=== PATIENT | female | born 2000 | race Caucasian/White ===

== ENCOUNTER 2018-05-13 08:30 | Outpatient (RCR) | payer OTHER, SELFPAY ==
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
--- NOTE | 2018-05-13 14:54 | BH.SGPN ---
Service Group Progress Note - Session Psychotherapy Session #2 Date Open:: 05/13/18 Time Started:: 10:25 Time Stopped:: 11:15 Targeted Problem #:: 1 Type of Group:: Illness Management Goal of Group:: To increase understanding how positive and negative forces in life can impact balance in life. Client Response/Progress/Benefit:: Client appeared anxious throughout group listening attentively to others and sharing her thoughts at times. Mostly stayed quiet which could be attributed to today being client's first day in [facility]. Client did connect with other group members comments about having to put forth effort in order for her personal growth to happen. Client shared she often uses napping as her way of dealing with her emotions which she recognizes does not helping for it. Client shared 3 things to take with session to be utilizing self-care more, setting boundaries, and challenging her negative thoughts. Client seemed benefit from increasing awareness of effort needed in order for personal growth to occur. Eye Contact:: Fair Motor Activity:: Appropriate Appearance:: Casual Speech:: Appropriate Mood:: Anxious Affect:: Congruent Thoughts:: Linear, Logical, No evidence of hallucinations/delusions noted Staff Interventions:: Therapist facilitated group discussion about the various forces of life and helped clients connect the impact they have on balance in life. Therapist led group in an experiential activity in which group members had to work together to balance an object and move it to a designated location. Therapist utilized the activity as a tool to process the challenges connected with balancing various forces. Psychotherapy Session #3 Date Open:: 05/13/18 Time Started:: 11:22 Time Stopped:: 12:15 Targeted Problem #:: 1 Type of Group:: Functional Skills Development Goal of Group:: To identify positive and negative forces in life and identify which forces are helping stability and which forces are contributing to instability. Client Response/Progress/Benefit:: Client overall quiet contributed if elicited by therapist and listened attentively to others. Client identified her positive forces to include: Family, counselor, wanting to be a good role model, her cat, and trying to be the person she can imagined she would be. Client shared her negative forces to include: Certain family members, anxiety, fear of failure, putting herself down, and not accepting help. Client reported currently she does not feel her forces are balanced because she constantly feels like she is going up and down with having a good day and then a bad day but no consistency. Client seemed benefit from increasing awareness of her positive and negative forces. Eye Contact:: Fair Motor Activity:: Appropriate Appearance:: Casual Speech:: Appropriate Mood:: Anxious Affect:: Congruent Thoughts:: Linear, Logical, No evidence of hallucinations/delusions noted Staff Interventions:: Therapist provided group with an example of a scenario of a person and the individual?s positive and negative forces. Therapist provided each group member with a worksheet in which they were to identify five positive and five negative forces in their life. Therapist processed the activity with the group, helping others connect the impact certain forces have on their life balance.
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
--- NOTE | 2018-05-13 16:47 | BH.SGPN ---
Service Group Progress Note - Session Psychotherapy Session #1 Date Open:: 05/13/18 Time Started:: 09:05 Time Stopped:: 10:17 Targeted Problem #:: 1 Type of Group:: Process - 7 participants Goal of Group:: The goal of today's group was to check-in with client's mood, stressors, and positives, review homework and introduce topic for the day. Client Response/Progress/Benefit:: Client new to the IOP program and expressed feeling both anxious and unsure of beginning the program. She did well to remain attentive throughout and was willing to share with the group. Client shared that she had decided on beginning the program in order to learn new ways of managing her symptoms of anxiety and depression. Client disclosed struggling with her mental health since she was a child but that her anxiety and depression seems to have worsened following the of her sister almost four years ago and has become unmanageable in the last month or so. Client expressed Im used to running or hiding from my problems but I dont want to do that anymore. Client benefitted from the support of the group environment and encouragement provided by fellow participants. Client showed willingness to open up to the group and am is recommended continued IOP tx improve current insight and understanding regarding mental health as well as increased overall used of healthy coping skills. Eye Contact:: Good Motor Activity:: Appropriate Appearance:: Casual Speech:: Appropriate Mood:: Anxious, Depressed Affect:: Congruent Thoughts:: Linear, Logical, No evidence of hallucinations/delusions noted Staff Interventions:: Therapist used open-ended questions to elicit information about client's current stressors and mood state. Therapist was supportive by using active listening and reflection.
--- NOTE | 2018-05-14 11:14 | BH.SGPN ---
Service Group Progress Note - Session Psychotherapy Session #1 Date Open:: 05/14/18 Time Started:: 09:10 Time Stopped:: 10:00 Type of Group:: Process - 5 group members Goal of Group:: The goal of today's group was to check-in with client's mood, stressors, and positives, and review homework. Client Response/Progress/Benefit:: Pt was attentive however did not participate in group discussion. Shared that she felt much better and less anxious this morning Reports being more optimistic after starting IOP yesterday. Shared increased motivation today as well stating I got up after only one alarm. Shared struggles with decision-making over the past several weeks which has caused conflict with her mother. Pt reports feeling like a failure to her mother which has caused significant depressive and negative thoughts. Eager to prove she is not a failure however struggles with impulse and desires. Reported progress from yesterday regarding mood. Will continue with IOP to maintain safety, stablize depression, and prevent further decompensation. Eye Contact:: Good Motor Activity:: Appropriate Appearance:: Casual Speech:: Appropriate Mood:: Anxious Affect:: Congruent Thoughts:: Linear, Logical, No evidence of hallucinations/delusions noted Staff Interventions:: Therapist used open-ended questions to elicit information about client's current stressors and mood state. Therapist was supportive by using active listening and reflection.
--- NOTE | 2018-05-14 13:43 | BH.SGPN ---
Service Group Progress Note - Session Psychotherapy Session #2 Date Open:: 05/14/18 - 6 group members Time Started:: 10:10 Time Stopped:: 11:07 Targeted Problem #:: 1 Type of Group:: Illness Management Goal of Group:: To increase self-awareness of current reality in regards to mental wellness and desired mental wellness. Client Response/Progress/Benefit:: Client responded well to session, quiet at first, but participating after prompting. Client appeared to connect with the topic sharing I put a lot of barriers up myself. Client created a visual of her current mental health reality which depicted client standing at the base of a rope ladder hanging on an apple tree. Client shared the top of the tree is where client wants to be, happy, confident, enjoying life, but client cannot take the steps to get there yet. Client shared she is being chased by dogs of anxiety, avoidance, and depression. Client reported her desired reality climbing the rope and sitting on a branch with her supports close enough to the fruit in the tree where she can enjoy them, but still experiences challenges. Client reported I know my depression and anxiety wont go away all the way, but Ill be able to handle things better. Client shared she feels less hopeless and can envision how things will improve. Client appeared to benefit from gaining awareness of her current mental health reality. Progressed noted in client's increased awareness of mental health warning signs and symptoms, but can continue to benefit from reducing anxiety and depression. Client to continue IOP to prevent decompensation and promote mood stability. Eye Contact:: Good Motor Activity:: Appropriate Appearance:: Neat Speech:: Appropriate Mood:: Anxious Affect:: Constricted Thoughts:: Linear, Logical, No evidence of hallucinations/delusions noted Staff Interventions:: Therapist facilitated group discussion about current reality in regards to mental health. Client provided each group member a piece of paper and asked them to draw their current reality. Therapist led the processing of each group members drawing. Therapist provided each group member with a second piece of paper and asked clients to draw desired mental wellness. Therapist processed each group members drawing, helping clients connect the two realities. Psychotherapy Session #3 Date Open:: 05/14/18 - 5 group members Time Started:: 11:17 Time Stopped:: 12:14 Targeted Problem #:: 1 Type of Group:: Functional Skills Development Goal of Group:: To identify obstacles in clients path to mental wellness and identify strategies to help clients overcome these obstacles. Client Response/Progress/Benefit:: Client responded well to session, active participant providing good insight. Client identified personal barriers keeping client from achieving her desired reality avoiding problems, negative self-talk, setting herself up for failure, and not asking for help. Client stated these barriers keep client stuck and she knows what will help her, but does not use the supports to get there. Client participated in the activity and helped the group establish strategies to overcome barriers. Clients strategies included reminding herself no one is perfect and that it is okay to make mistakes, reaching out to one support person, challenging negative thoughts, and knowing limitations and strengths. Client appeared to benefit from gaining awareness of the barriers holding client back from reaching goals and identifying strategies to overcome these barriers. Progress still limited as client is new to [facility], but appears less anxious in group as shown by her engagement with peers and contribution to discussion. Eye Contact:: Good Motor Activity:: Appropriate Appearance:: Neat Speech:: Appropriate Mood:: Anxious Affect:: Full Thoughts:: Linear, Logical, No evidence of hallucinations/delusions noted Staff Interventions:: Therapist facilitated group discussion about obstacles and the hesitations of overcoming obstacles. Client led group in discussion about what obstacles they have control over and which obstacles are out of their control. Therapist helped clients connect how each obstacle is preventing them from achieving their desired reality. Therapist led an activity aimed to help clients use teamwork and problem-solving to establish strategies for overcoming obstacles. Therapist assisted clients in creating a list of various strategies to promote emotional wellness and overcome barriers. Therapist provided support by using reflective listening and providing feedback.
--- NOTE | 2018-05-14 16:49 | BH.SGPN_ITS ---
Service Group Progress Note - Session Psychotherapy Session #1 Date Open:: 05/13/18 Time Started:: 09:05 Time Stopped:: 10:17 Targeted Problem #:: 1 Type of Group:: Process - 7 participants Goal of Group:: The goal of today's group was to check-in with client's mood, stressors, and positives, review homework and introduce topic for the day. Client Response/Progress/Benefit:: Client new to the IOP program and expressed feeling both anxious and unsure of beginning the program. She did well to remain attentive throughout and was willing to share with the group. Client shared that she had decided on beginning the program in order to learn new ways of managing her symptoms of anxiety and depression. Client disclosed struggling with her mental health since she was a child but that her anxiety and depression seems to have worsened following the of her sister almost four years ago and has become ?unmanageable? in the last month or so. Client expressed ?I?m used to running or hiding from my problems but I don?t want to do that anymore?. Client benefitted from the support of the group environment and encouragement provided by fellow participants. Client showed willingness to open up to the group and am is recommended continued IOP tx improve current insight and understanding regarding mental health as well as increased overall used of healthy coping skills. Eye Contact:: Good Motor Activity:: Appropriate Appearance:: Casual Speech:: Appropriate Mood:: Anxious, Depressed Affect:: Congruent Thoughts:: Linear, Logical, No evidence of hallucinations/delusions noted Staff Interventions:: Therapist used open-ended questions to elicit information about client's current stressors and mood state. Therapist was supportive by using active listening and reflection.
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
--- NOTE | 2018-05-15 14:25 | BH.DR.ITP ---
Initial Treatment Plan - Patient Information Visit Information: ADMISSION DATE: EXPECTED LOS: 4-6 weeks Diagnoses:: Major depressive disorder F 33.2 - Problems/Symptoms Problem #1:: Depression Symptom:: Sad mood, anhedonia, biologic disruption of sleep and appetite, passive thoughts of Problem #2:: Anxiety Symptom:: Rumination, intrusive traumatic thoughts, panic
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
--- NOTE | 2018-05-18 14:16 | BH.MDN ---
Multi-Disciplinary Note - Note 30-min Individual Time Started:: 12:22 Date: 05/18/18 Purpose of session/treatment goals addressed:: Purpose of session was to assess Client current symptoms and stressors, as well as use of coping strategies. Another purpose was to assist client in beginning to identify healthy activities to incorporate in a regular routine on days she is not in the program as well as strategies for motivating herself and preventing isolation. Eye Contact:: Good Motor Activity:: Appropriate Appearance:: Casual Speech:: Appropriate Mood:: Dysthymic Affect:: Congruent Thoughts:: Linear, Logical, No evidence of hallucinations/delusions noted Staff Interventions:: Therapist used open ended questions to elicit Client's current symptoms and stressors. Therapist elicited Client's thoughts about her ability to implement skills learned in during daily life. Therapist provided support by listening attentively, commending CLient on progress, and validating emotions. Used CBT interventions to assist Client in identifying thought challenging techniques for combating urges to isolate. Discussed small goals for client to begin decreasing negative self talk and improving relationship with self. Client Response:: Client responded well to session and indicates feeling as though her overall mood is beginning to improve since beginning the program last week. Client reports she is finding the groups to be helpful with learning new skills, giving her something to do outside of the house, and helping he to relate to others experiences. She went on to share that she had almost self-sabotaged over the weekend but was able to use the support of her mother and her own thought challenging to analyze her choices and make a healthier decision. Client explained that she had been able to overcome urges to go. to a alliance party in which alcohol was going to be present and make plans to see a movie with a different group of friends instead. Client indicated that this had been hard as she had been ruminating on the fact that her mother had told her she was setting herself up for failure if she went to the alliance party. She shared being tempted to prove her wrong but instead decided it was not worth risking additional problems from being created as a result. CLient shared doing well to feel happy and challenge negative self-talk when around others but struggles significantly during times she is alone. CLient went on to explain spending much of Friday in bed as she didn't have plans and didn't see the point in doing anything else. She additionally discussed that Friday was difficult emotionally for her as it was Father's day and client struggled to decide whether or not she wanted to see her father. She shared spending a few hours with him after work but was sure to maintain boundaries of only staying as long as she felt comfortable and not being pressured to spend additional time. She did well to identify the negative impact avoidance and isolation have on her mental health and shared difficulties in challenging the justifications she gives herself when doing so. Client expressed some fear and discomfort in spending time alone as she gets lonely and is unsure she will like getting to know herself better. CLient able to work with therapist on identifying positive qualities she has to begin confronting some of client negative self-esteem. Client shared feeling more likely to do things on days that she has things scheduled and if she gets up and takes a shower. Client willing to set a goal of showering each morning and planning one thing to do on the days she is not in group. Risks/Concerns:: lient denies active SI/HI ideation, plan or intent to date - 05/18/18. no risks or concerns at this time. Client is aware of and willing to access local crisis resources should she need. Client future oriented and indicates plans to go to a local [employer] store this afternoon. Progress Toward Goals/Plan:: Progress made. Since beginning IOP program client has done well to engage in both individual and group sessions. She reports a decrease in depressive symptoms due to actively trying to apply the stuff I learn in groups. Client specifically cited use of reframing and thought stopping strategies over the weekend. Client does continue to note difficulties in coping with down time or being alone. She indicates sleeping for most of the day when she does not have plans or watching Netflix to avoid doing anything else. Client plan is to continue with current tx plan and work on increasing implementation of healthy coping activities, establishing healthy boundaries, and improving positive self-talk on a regular basis. Time Stopped:: 12:58
--- NOTE | 2018-05-18 14:17 | BH.SGPN ---
Service Group Progress Note - Session Psychotherapy Session #2 Date Open:: 05/18/18 group members Time Started:: 10:20 Time Stopped:: 11:17 Targeted Problem #:: 1 Type of Group:: Illness Management Goal of Group:: To identify the importance of change, increase understanding of difficulty of making change, identify what clients would like to make changes in and identify the barriers or obstacles that get in the way of change. Client Response/Progress/Benefit:: Client responded well to session, quiet, but participating when prompted. Client connected with quote, stating, you dont grow or change if you keep looking back. Client stated change is important to help improve quality of life, but it is not easy because of anxiety, fear, and negative thinking. Client identified changes she would like to make this week as going for more walks, putting more effort into applying for jobs, and relaxing outside instead of in her bed. Client shared these changes would make her feel better, not isolate as much, and increase activity. Client identified barriers to these goals such as telling myself I deserve to stay in bed and lack of confidence. Client appeared to benefit from gaining awareness of the importance of change and identifying changes she would like to make this week. Client progressing as evidenced by her improved insight and report of using healthy coping over the weekend. Client to continue IOP to prevent decompensation and promote emotional regulation. Eye Contact:: Good Motor Activity:: Appropriate Appearance:: Neat Speech:: Appropriate Mood:: Anxious Affect:: Constricted Thoughts:: Linear, Logical, No evidence of hallucinations/delusions noted Staff Interventions:: Therapist facilitated discussion about change and helped clients make connections of why change is important. Therapist led group in an experiential activity which involved clients identifying changes want to make and barriers that get in the way of making those changes. Therapist utilized activity as a tool to help clients make connections of difficulties in making changes and identify what helps overcome barriers to change. Psychotherapy Session #3 Date Open:: 05/18/18 - group members Time Started:: 11:23 Time Stopped:: 12:15 Targeted Problem #:: 1 Type of Group:: Functional Skills Development Goal of Group:: To identify specific barriers to an identified change clients want to make and identify ways to overcome those barriers. Client Response/Progress/Benefit:: Client responded well to session, active participant. Client connected the activity to life outside of group, sharing you have to know your barriers first before you can start making change. Client identified her goal for the week as stop telling myself I deserve to stay in bed all day. Client stated she wants to make this change because it will reduce isolation and help her be more productive. Client's barriers were negative self-talk, old habits, and low energy. Client helped the group create strategies to overcome these barriers such as getting out in the sun, taking care of personal hygiene, using delay distract decide, and setting time limits. Client appeared to benefit from identifying strategies to overcome barriers. Progress noted in client's increased insight and engagement in group, but can continue to benefit from challenging cognitive distortions. Eye Contact:: Good Motor Activity:: Appropriate Appearance:: Neat Speech:: Appropriate Mood:: Anxious Affect:: Constricted Thoughts:: Linear, Logical, No evidence of hallucinations/delusions noted Staff Interventions:: Therapist facilitated discussion about what helped the group overcome challenges that came about during the experiential activity. Therapist utilized the activity as a tool in relating those experiences to ways to overcome barriers with challenges in their life when trying to make change. Therapist group into smaller groups and had them brainstorm ways to overcome certain barriers to their identified change. Therapist provided support by using reflective listening and providing feedback.
--- NOTE | 2018-05-18 14:20 | BH.SGPN_ITS ---
Service Group Progress Note - Session Psychotherapy Session #2 Date Open:: 05/18/18 group members Time Started:: 10:20 Time Stopped:: 11:17 Targeted Problem #:: 1 Type of Group:: Illness Management Goal of Group:: To identify the importance of change, increase understanding of difficulty of making change, identify what clients would like to make changes in and identify the barriers or obstacles that get in the way of change. Client Response/Progress/Benefit:: Client responded well to session, quiet, but participating when prompted. Client connected with quote, stating, you don?t grow or change if you keep looking back. Client stated change is important to help improve quality of life, but it is not easy because of anxiety, fear, and negative thinking. Client identified changes she would like to make this week as going for more walks, putting more effort into applying for jobs, and relaxing outside instead of in her bed. Client shared these changes would make her feel better, not isolate as much, and increase activity. Client identified barriers to these goals such as ?telling myself I deserve to stay in bed? and lack of confidence. Client appeared to benefit from gaining awareness of the importance of change and identifying changes she would like to make this week. Client progressing as evidenced by her improved insight and report of using healthy coping over the weekend. Client to continue IOP to prevent decompensation and promote emotional regulation. Eye Contact:: Good Motor Activity:: Appropriate Appearance:: Neat Speech:: Appropriate Mood:: Anxious Affect:: Constricted Thoughts:: Linear, Logical, No evidence of hallucinations/delusions noted Staff Interventions:: Therapist facilitated discussion about change and helped client?s make connections of why change is important. Therapist led group in an experiential activity which involved client?s identifying changes want to make and barriers that get in the way of making those changes. Therapist utilized activity as a tool to help client?s make connections of difficulties in making changes and identify what helps overcome barriers to change. Psychotherapy Session #3 Date Open:: 05/18/18 - group members Time Started:: 11:23 Time Stopped:: 12:15 Targeted Problem #:: 1 Type of Group:: Functional Skills Development Goal of Group:: To identify specific barriers to an identified change clients want to make and identify ways to overcome those barriers. Client Response/Progress/Benefit:: Client responded well to session, active participant. Client connected the activity to life outside of group, sharing ? you have to know your barriers first before you can start making change.? Client identified her goal for the week as ?stop telling myself I deserve to stay in bed all day.? Client stated she wants to make this change because it will reduce isolation and help her be more productive. Client's barriers were negative self-talk, old habits, and low energy. Client helped the group create strategies to overcome these barriers such as getting out in the sun, taking care of personal hygiene, using delay distract decide, and setting time limits. Client appeared to benefit from identifying strategies to overcome barriers. Progress noted in client's increased insight and engagement in group, but can continue to benefit from challenging cognitive distortions. Eye Contact:: Good Motor Activity:: Appropriate Appearance:: Neat Speech:: Appropriate Mood:: Anxious Affect:: Constricted Thoughts:: Linear, Logical, No evidence of hallucinations/delusions noted Staff Interventions:: Therapist facilitated discussion about what helped the group overcome challenges that came about during the experiential activity. Therapist utilized the activity as a tool in relating those experiences to ways to overcome barriers with challenges in their life when trying to make change. Therapist group into smaller groups and had them brainstorm ways to overcome certain barriers to their identified change. Therapist provided support by using reflective listening and providing feedback.
--- NOTE | 2018-05-18 15:11 | BH.MDN_ITS ---
Multi-Disciplinary Note - Note 30-min Individual Time Started:: 12:22 Date: 05/18/18 Purpose of session/treatment goals addressed:: Purpose of session was to assess Client current symptoms and stressors, as well as use of coping strategies. Another purpose was to assist client in beginning to identify healthy activities to incorporate in a regular routine on days she is not in the program as well as strategies for motivating herself and preventing isolation. Eye Contact:: Good Motor Activity:: Appropriate Appearance:: Casual Speech:: Appropriate Mood:: Dysthymic Affect:: Congruent Thoughts:: Linear, Logical, No evidence of hallucinations/delusions noted Staff Interventions:: Therapist used open ended questions to elicit Client's current symptoms and stressors. Therapist elicited Client's thoughts about her ability to implement skills learned in during daily life. Therapist provided support by listening attentively, commending CLient on progress, and validating emotions. Used CBT interventions to assist Client in identifying thought challenging techniques for combating urges to isolate. Discussed small goals for client to begin decreasing negative self talk and improving relationship with self. Client Response:: Client responded well to session and indicates feeling as though her overall mood is beginning to improve since beginning the program last week. Client reports she is finding the groups to be helpful with learning new skills, giving her something to do outside of the house, and helping he to relate to others experiences. She went on to share that she had almost self- sabotaged over the weekend but was able to use the support of her mother and her own thought challenging to analyze her choices and make a healthier decision. Client explained that she had been able to overcome urges to go. to a libertarian in which alcohol was going to be present and make plans to see a movie with a different group of friends instead. Client indicated that this had been hard as she had been ruminating on the fact that her mother had told her she was setting herself up for failure if she went to the libertarian. She shared being tempted to prove her wrong but instead decided it was not worth risking additional problems from being created as a result. CLient shared doing well to feel happy and challenge negative self-talk when around others but struggles significantly during times she is alone. CLient went on to explain spending much of Friday in bed as she didn't have plans and didn't see the point in doing anything else. She additionally discussed that Friday was difficult emotionally for her as it was Father's day and client struggled to decide whether or not she wanted to see her father. She shared spending a few hours with him after work but was sure to maintain boundaries of only staying as long as she felt comfortable and not being pressured to spend additional time. She did well to identify the negative impact avoidance and isolation have on her mental health and shared difficulties in challenging the justifications she gives herself when doing so. Client expressed some fear and discomfort in spending time alone as she gets lonely and is unsure she will like getting to know herself better. CLient able to work with therapist on identifying positive qualities she has to begin confronting some of client negative self-esteem. Client shared feeling more likely to do things on days that she has things scheduled and if she gets up and takes a shower. Client willing to set a goal of showering each morning and planning one thing to do on the days she is not in group. Risks/Concerns:: lient denies active SI/HI ideation, plan or intent to date - . no risks or concerns at this time. Client is aware of and willing to access local crisis resources should she need. Client future oriented and indicates plans to go to a local [employer] store this afternoon. Progress Toward Goals/Plan:: Progress made. Since beginning IOP program client has done well to engage in both individual and group sessions. She reports a decrease in depressive symptoms due to actively trying to apply the stuff I learn in groups. Client specifically cited use of reframing and thought stopping strategies over the weekend. Client does continue to note difficulties in coping with down time or being alone. She indicates sleeping for most of the day when she does not have plans or watching Netflix to avoid doing anything else. Client plan is to continue with current tx plan and work on increasing implementation of healthy coping activities, establishing healthy boundaries, and improving positive self-talk on a regular basis. Time Stopped:: 12:58
--- NOTE | 2018-05-19 08:55 | BH.SGPN_ITS ---
Service Group Progress Note - Session Psychotherapy Session #2 Date Open:: 05/15/18 Time Started:: 10:12 Time Stopped:: 11:04 Targeted Problem #:: 1 Type of Group:: Illness Management - 6 participants Goal of Group:: The goal of group was to increase understanding of the benefits social support provides in mental health wellness. Another goal was to increase self-awareness of the barriers that prevent client to seeking support or utilizing the support they have. Client Response/Progress/Benefit:: Client responded well to session and was engaged throughout both the discussion and activity portions of the group. Client worked with group members to discuss the various benefits of having a strong support system and how this may positively impact one's mental health. She appeared to benefit from the group activity in which participants were challenged to recreate a structure that they cannot see by using only the verbal instruction provided by another member of the group. Client appeared to become more engaged during activity portion and shared feeling more comfortable within the group setting. Client displaying progress in her ability to relate to fellow participants and conect with treatment materials. She is recommended continued IOP to further improve Client variety of skills for managing emotions and navigating distress as well as to prevent decompensation. Eye Contact:: Good Motor Activity:: Appropriate Appearance:: Casual Speech:: Appropriate Mood:: Euthymic, Anxious Affect:: Congruent Thoughts:: Linear, Logical, No evidence of hallucinations/delusions noted Staff Interventions:: Therapist led a group discussion about importance of social supports. Therapist facilitated an activity that required the group members to utilize support from each other. Therapist utilized the activity as a tool to connect the importance of accepting social support. Therapist provided support through reflective listening and giving feedback. Psychotherapy Session #3 Date Open:: 05/15/18 Time Started:: 11:12 Time Stopped:: 12:03 Targeted Problem #:: 1 Type of Group:: Functional Skills Development - 6 participants Goal of Group:: The goal of group was to increase understanding of the different types of social support. Another goal was to identify one type of support the client?s desire from their support system and brainstorm ways to best communicate these needs as well establish one small step towards achieving that support. Client Response/Progress/Benefit:: Client again did well to remain engaged throughout. She provided increased input to the discussion and worked with fellow participants on identifying ways in which communication and differing perspectives can impact ability to communicate with supports. CLient shared struggling to communicate with her mom as she forgets to try and put herself in her mom's shoes and also struggles to explain where she is coming from in a way thet her mother can relate to. Client benefitted from reviewing the various types of support we may need from our support system as well as brainstorming with the group ways to effectively attain this support. Client progress made in her ability to apply treatment concepts to her own life as identifed by client report of wanting to improve emotional supports so that it does not feel like she is doing things so much on her own. CLient recommended continued IOP to improve effective communication strategies and use of health stress management and emotion regulation skills on a consistent basis. Eye Contact:: Good Motor Activity:: Appropriate Appearance:: Casual Speech:: Appropriate Mood:: Euthymic, Anxious Affect:: Congruent Thoughts:: Linear, Logical, No evidence of hallucinations/delusions noted Staff Interventions:: Therapist facilitated group discussion on the different types of social support and importance of each type of support. A social support worksheet, was utilized to give clients direction in identifying which type of support they desired, how it will help, and identifying the first small step towards the desired support. Therapist provided homework for each group member to try and accomplish the one small step each group member identified on the worksheet.
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
--- NOTE | 2018-05-20 15:02 | BH.SGPN_ITS ---
Service Group Progress Note - Session Psychotherapy Session #2 Date Open:: 05/20/18 - 8 group members Time Started:: 10:18 Time Stopped:: 11:15 Targeted Problem #:: 1 Type of Group:: Illness Management Goal of Group:: To increase understanding of what conflict is and increase awareness of how group members manage conflict. Client Response/Progress/Benefit:: Client responded well to session, providing good insight to discussion. Client appeared to connect with the quote, sharing ? you don?t just have conflict with others, you have it with yourself.? Client shared conflict is a disagreement of views or values. Client shared emotions, thoughts, and bias can impact one?s ability to manage conflict. Client identified using the accommodating conflict resolution type most often as client wants to constantly make other people happy. Client shared she is not currently happy with how she manages conflict, as client reported her needs do not get met and she gets ?walked all over.? Client appeared to benefit from gaining awareness of how she manages conflict and how it impacts mental health. Progress noted as client reports reduced isolation, but can continue to benefit from setting boundaries and communicating needs. Eye Contact:: Good Motor Activity:: Appropriate Appearance:: Neat Speech:: Appropriate Mood:: Euthymic Affect:: Constricted Thoughts:: Linear, Logical, No evidence of hallucinations/delusions noted Staff Interventions:: Therapist facilitated discussion about conflict and conflict resolution. Therapist led group in an activity in which group members had to identify their initial response to conflict and how their response changes based on different situations. Therapist assisted clients with connecting the impact current conflict style has on their mental health. Psychotherapy Session #3 Date Open:: 05/20/18 - 6 group members Time Started:: 11:25 Time Stopped:: 12:15 Targeted Problem #:: 1 Type of Group:: Functional Skills Development Goal of Group:: To identify what contributes positively and negatively to conflict and appropriate ways to manage conflict with others. Client Response/Progress/Benefit:: Client responded well to session, active participant. Client contributed positively to the activity despite being anxious about being more assertive and cooperative. Client responded well to gentle challenging by therapist, who encouraged client to be more vocal of her thoughts and opinions during the activity. Client stated low self-esteem, negative thoughts, and worrying about what others think can negatively impact conflict resolution. Client helped the group identify strategies to improve conflict resolution such as taking breaks, prioritizing, and dealing with one issue at a time. Client shared she would like to improve her conflict resolution style by setting more boundaries with people who take advantage of her. Client appeared to benefit from practicing in the moment coping skills and identifying ways to improve conflict resolution. Client to continue IOP to reduce isolation and improve mood stability. Eye Contact:: Good Motor Activity:: Appropriate Appearance:: Neat Speech:: Appropriate Mood:: Anxious Affect:: Congruent Thoughts:: Linear, Logical, No evidence of hallucinations/delusions noted Staff Interventions:: Therapist facilitated group activity in which group members were provided with materials and had to eliminate certain items with consensus from group. Therapist processed activity, helping clients connect throughout activity strategies each person used to manage conflict. Therapist led discussion about what contributes to conflict in a positive or negative manner. Therapist facilitated discussion about conflict resolution strategies and provided group member with a handout about effective ways to manage conflict.
--- NOTE | 2018-05-20 15:20 | BH.SGPN ---
Service Group Progress Note - Session Psychotherapy Session #1 Date Open:: 05/20/18 Time Started:: 09:05 Time Stopped:: 10:11 Targeted Problem #:: 1 Type of Group:: Process - 8 participants Goal of Group:: The goal of today's group was to check-in with clients and review homework from previous group session. Client Response/Progress/Benefit:: Client responded well to session and was willing to participate in discussion. SHe shared feeling tired today and was slightly more quiet than baseline. Client went on to share connecting with another Client who had been discussing difficulties with spending the entire day in bed isolating. She shared having set a goal for herself yesterday of not getting back into bed after she showered in the moring. Client discribed struggling with the urge to do so and thinking oh, it's okay if it's just for a little bit. Client went on to share that instead she told herself no and removed herself from the temptation by making her bedroom off limits for the remainder of the day. Client discussed the various things she accomplished as a result and was even able to spend the evening outside with friends and family. CLient benefitted from reflecting upon the mental health benefits she experienced by challenging herself not to engage in isolating behaviors. She struggled however to identify this as a success as client indicates believing she should have been doing more. Client went on to share recently reconnecting with old friends whom have been healthy for her in the past. She is making progress in identifying where she may need to start setting boundaries and cutting out toxic relationships. Client recommended continued IOP to further work on skill building, prevent decompensation, and continue to promote use of healthy coping. Eye Contact:: Good Motor Activity:: Appropriate Appearance:: Casual Speech:: Appropriate Mood:: Dysthymic Affect:: Constricted Thoughts:: Linear, Logical, No evidence of hallucinations/delusions noted Staff Interventions:: Therapist facilitated the group session by asking open ended questions that encouraged group members to discuss their weekend and current mood state. Assisted group members in the review of their homework from previous group session.
--- NOTE | 2018-05-22 15:15 | BH.SGPN ---
Service Group Progress Note - Session Psychotherapy Session #1 Date Open:: 05/22/18 Time Started:: 09:10 Time Stopped:: 10:00 Type of Group:: Process - 8 group members Goal of Group:: The goal of today's group was to check-in with client's mood, stressors, and positives, and review homework. Client Response/Progress/Benefit:: Pt spoke with prompted however was attentive. Emotion for today is tired. Shared with the group that her relationship with her mother has improved since she start this program. Reports better decision-making, decreased isolation, and increased energy. She was proud of herself for not isolating in bed when she felt sad. Pushing herself to interact with peers and family which is improving mood and confidence. Overal reports improved mood. Progress noted as reported by patient. Benefited from group support and praise. Will continue in IOP to maintain gains, stablize depression/anxiety, decrease isolative behaviors, and improve functioning. Eye Contact:: Fair Motor Activity:: Restless Appearance:: Casual Speech:: Appropriate Mood:: Anxious Affect:: Congruent Thoughts:: Linear, Logical, No evidence of hallucinations/delusions noted Staff Interventions:: Therapist used open-ended questions to elicit information about client's current stressors and mood state. Therapist was supportive by using active listening and reflection.
--- NOTE | 2018-05-25 13:00 | BH.MDN_ITS ---
Multi-Disciplinary Note - Note 30-min Individual Time Started:: 12:21 Date: 05/25/18 Purpose of session/treatment goals addressed:: The purpose of this session was to assess treatment goal progress and current functioning as well as address client's ongoing difficulties in challenging cognitive distortions and client use of avoidance. Another goal was to increase client's awareness of strategies to combat self-sabotage and promote healthy decision making strategies. Other topics included: goal setting and mindfulness. Eye Contact:: Good Motor Activity:: Appropriate Appearance:: Casual Speech:: Appropriate Mood:: Euthymic, Anxious Affect:: Congruent Thoughts:: Linear, Logical, No evidence of hallucinations/delusions noted Staff Interventions:: Therapist used open-ended questions to explore client's current stressors, symptoms management, and ongoing use of cognitive distortions. Therapist applied components of the decisional balance tool to promote client use of healthy coping and decrease isolative and avoidance behaviors. Therapist assisted client in identifying, challenging, and replacing specific negative thoughts. Therapist used strengths-perspective to help client identify small goals to begin decreasing avoidance and improve positive self- talk and independence. Provided supportive feedback and encouragement. Client Response:: Client responded well to session and was open to meeting with therapist. She discussed successfully refraining from engaging in isolative behaviors via sleeping all day. Client shared that she has reached out to more of her supports that she had not been in contact with for quite some time. Client indicated that this has been reassuring to know that there are several people who care and support her. Client went on to discuss that she has found placing sticky notes on her bedroom wall with reminders of why not to isolate has been helpful in refraining from doing so. She went on to discuss that although she has not been sleeping during the day, she has not been completing her daily responsibilities either. Client described spending much of her time playing with her little brother or hanging out with friends but has not been doing things such as cleaning her room or doing laundry. CLient and therapist discussed using distraction as an avoidance mechanism and ways in which distractions can become unhealthy. CLient shared that she often struggles to get started on a task but once started is able to remain motivated to complete it. She worked with therapsit to review strategies for motivating her to begin completing responsibilities. CLient indicated connecting with the concept of writing down the benefits and consequences of completing the task versus not completing it. SHe did well to apply this same concept to client continued avoidance of spending time on self-care in a capacity where she is alone. CLient discussed fears that she will be tempted to isolate or will not like who she when confronted with spending time by herself. Client and therapist discussed the consequences of never growing to be comfortable with being alone and the potential benefits. She worked with therapsit to identify that she is no longer in the same place mental health [facility]aney as she had been during her last major depressive state in which she completely cut herself off from others. Client discussed wanting to begin taking small steps to work on increasing comfort levels when alone and identified spending short periods of time outside may make her more willing to do so. She reviewed mindfulness strategies with therapist and identified this as a potential means for practicing self-care on her own. Risks/Concerns:: No risks/concerns at this time. Client denies any active SI/HI , plan, or intent as of 05/25/18. She indicates plans to attend a collenge enrollment meeting with her mother getachew indicating future orientation. CLient aware of the crisis resources available should she feel unable to maintain safety at this time. Progress Toward Goals/Plan:: Client displaying progress in her ability to identify potential strategies for reducing depressive symptoms and setting small daily goals to begin implementing these skills. Client has been successful in consistently refraining from using sleep as her primary coping mechanism and has identified a reduction in depressive sx as a result. Client additionally reports finding herself thinking about tx material in her daily life and is beginning to notice more easily identifying and challenging negative thinking patterns. Client expresses a desire to further discuss cognitive distortions and strategies for challenging unhealthy thoughts. Client continues to struggle with negative thinking and self-deprication. She expresses rationally being able to recognize that her self criticism is unfair or overly harsh; however continues to experience difficulties in challenging them and often uses distraction as a means of avoiding working on her relationship with herself.Current plan is for client to continue IOP and maintain current goals of decreasing negative self talk and improving use healthy coping skills for precessing her emotions. Time Stopped:: 12:54
--- NOTE | 2018-05-25 14:50 | BH.SGPN_ITS ---
Service Group Progress Note - Session Psychotherapy Session #2 Date Open:: 05/25/18 - 9 group members Time Started:: 10:25 Time Stopped:: 11:15 Targeted Problem #:: 1 Type of Group:: Illness Management Goal of Group:: To increase understanding of communication and the various types of communication. Another goal was to increase understanding of impact communication styles can have. Client Response/Progress/Benefit:: Client responded well to session, quiet, but participating when prompted. Client reported communication is important in mental health recovery, so that a person can share what they need with supports. Client identified communication ?roadblocks? such aggressive people, negative thoughts, and jumping to conclusions. Client helped the group identify the different communication types along with the payoffs and costs of each. Client reported she uses passive communication most of the time, but most of her family members are aggressive. Client shared negative thinking keeps client from being assertive sharing ?I think I?ll be a burden and then I feel guilty and don?t ask.? Client stated her current communication style is not helping client get her needs met. Client appeared to benefit from gaining awareness of how communication impacts mental health. Progress noted as evidenced by client? s report of reduced isolation, but can continue to benefit from challenging cognitive distortions. Eye Contact:: Good Motor Activity:: Appropriate Appearance:: Neat Speech:: Appropriate Mood:: Euthymic Affect:: Full Thoughts:: Linear, Logical, No evidence of hallucinations/delusions noted Staff Interventions:: Therapist facilitated the group discussion about communication and explained the different types of communication. Therapist assisted group members in connecting the communication styles to the way they communicate and impact the communication style has on their relationships. Therapist provided support by using active listening and providing feedback. Psychotherapy Session #3 Date Open:: 05/25/18 - 7 group members Time Started:: :25 Time Stopped:: 12:15 Targeted Problem #:: 1 Type of Group:: Functional Skills Development Goal of Group:: To identify important components of communication and practice specific, clear communication. Client Response/Progress/Benefit:: Client responded well to session, active participant. Client overcame negative thinking and anxiety by volunteering to be one of the artists in the activity. Client shared the activity was stressful , but it helped client realize ?I can get through stress.? Client used assertive communication strategies such as asking questions for clarity. Client expressed she wants to be more assertive with the aggressive people in her life. Client helped the group identify strategies to improve communication such as being direct with her needs, challenging negative thoughts, and being descriptive. Client appeared to benefit from gaining awareness of the pros of using more assertive communication and strategies to improve communication. Client to continue IOP to further reduce depressive symptoms and challenging negative thinking patterns that cause ruminations. Eye Contact:: Good Motor Activity:: Appropriate Appearance:: Neat Speech:: Appropriate Mood:: Anxious Affect:: Congruent Thoughts:: Linear, Logical, No evidence of hallucinations/delusions noted Staff Interventions:: Therapist led the discussion about important components of effective communication. Therapist had volunteers from group participate in a reverse Pictionary game. The game required all group members to provide clear , specific, and assertive communication to help the volunteer draw the correct image. Therapist used the activity as to connect the importance of effective communication in mental health treatment. Therapist processed the activity with the group and helped the group identify strategies to improve communication skills.
--- NOTE | 2018-05-25 15:49 | BH.SGPN_ITS ---
Service Group Progress Note - Session Psychotherapy Session #2 Date Open:: 05/22/18 Time Started:: 10:05 Time Stopped:: 11:05 Targeted Problem #:: 1 Type of Group:: Illness Management Goal of Group:: To increase understanding of fixed vs growth mindset and the importance of looking at problems in different ways. Client Response/Progress/Benefit:: Client alert and oriented tended to be quiet , only contributing her thoughts and ideas a couple times. Client reported that sometimes when she is faced with tough situations she thinks it will never get better which keeps her stuck. Client worked cooperatively with group members during challenge activity. Connected importance of having a growth mindset because a fixed mindset can result in her not doing anything to help her situation. Client seemed to benefit from learning about the impact her mindset can have on her progress. Eye Contact:: Fair Motor Activity:: Appropriate Appearance:: Casual Speech:: Appropriate Mood:: Dysthymic Affect:: Constricted Thoughts:: Linear, Logical, No evidence of hallucinations/delusions noted Staff Interventions:: Therapist facilitated discussion about fixed vs growth mindset. Therapist led group in an activity that would initially seem impossible to complete, but once group members looked at the problem in a different way they would be able to see alternative solutions. Therapist utilized the activity as a tool to discuss overcoming those situations that seem impossible to get through. Psychotherapy Session #3 Date Open:: 05/22/18 Time Started:: 11:15 Time Stopped:: 12:10 Targeted Problem #:: 1 Type of Group:: Functional Skills Development Goal of Group:: To identify personal barriers that get in the way of accomplishing tasks and identify internal and external resources to help overcome difficult situations. Client Response/Progress/Benefit:: Client attentive to others and contributed to discussion if elicited by therapist. Client identified her personal obstacles to include: lacking patience, mad when not better, thinking she is better when she's not, toxic relationships and challenges with setting boundaries. Client seemed to benefit from group brainstorming internal and external resources that can help one overcome the various obstacles. Eye Contact:: Fair Motor Activity:: Appropriate Appearance:: Casual Speech:: Appropriate Mood:: Anxious, Dysthymic Affect:: Constricted Thoughts:: Linear, Logical, No evidence of hallucinations/delusions noted Staff Interventions:: Therapist facilitated discussion about internal and external resources and helped clients connect various internal resources they use. Therapist provided group members with a handout that gave information about various external resources the clients could utilize to get support. Therapist gave clients a worksheet in which they were asked to identify several barriers that get in their way to overcoming difficult situations. They also were asked to identify several internal and external resources they could use when needed.
--- NOTE | 2018-05-25 16:32 | BH.SGPN ---
Service Group Progress Note - Session Psychotherapy Session #1 Date Open:: 05/25/18 Time Started:: 09:07 Time Stopped:: 10:18 Targeted Problem #:: 1 Type of Group:: Process - 8 participants Goal of Group:: The goal of today's group was to check-in with client's mood, stressors, and positives, review homework and introduce topic for the day. Client Response/Progress/Benefit:: Client responded well to session and was open to processing with the group. She indicated feeling tired but positive. CLient indicated that often her mood is dictated by how she feels upon waking up in the morning however successfully challenged negative thoughts this morning and is finding that she no longer feels as negative as she had earlier in the morning. CLient discussed having a good weekend and was able to refrain from isolating during times she was not with others. Client shared going fishing with a friend on Friday which had been a positive experience as client found herself able to remain present for longer than usual. Client benefitted from reflecting upon the impact her use of healthy skills has begun to have on improving overall mood and decreasing symptoms of depression. CLient expressed feeling more motivated than previously and indicates plans to go to a meeting [facility] about enrolling in part-time community college classes in the fall. Client displaying progress in her ability to begin challenging distorted thinking patterns and continues to indicate motivation to improve ability to manage mental health symptoms. Client recommended continued IOP tx to maintain stability and continue to promote use of healthy coping skills identified as well as challenge use of self depricating talk. Eye Contact:: Good Motor Activity:: Appropriate Appearance:: Casual Speech:: Appropriate Mood:: Euthymic, Anxious Affect:: Congruent Thoughts:: Linear, Logical, No evidence of hallucinations/delusions noted Staff Interventions:: Therapist used open-ended questions to elicit information about client's current stressors and mood state. Therapist was supportive by using active listening and reflection. Therapist utilized a quote as a tool in introducing the topic of the day.
--- NOTE | 2018-05-26 17:25 | BH.MTP_ITS ---
[facility] - Patient Information Program Physician:: Adrienne Solares Primary Therapist:: JEFFRY Galvez - Psychiatric Diagnoses Psychiatric Diagnoses:: Major depressive disorder recurrent severe F 33.2. Anxiety unspecified. PTSD Diagnosis Code(s):: F33.2 - Estimated LOS Estimated LOS (in weeks):: 6 Problem/Goal #1 - Problem/Goal #1 Stated Goal:: Client will decrease depressive symptoms, isolation, negative thoughts, and agitation due to Major Depressive Disorder through Intensive Outpatient Program. Description of Barriers: Client has an extensive trauma history and reports intrusive traumatic thoughts and memories which may impact client's ability to challenge negative thinking patterns and use of self-deprecation. Client has a history of use of unhealthy coping mechanisms via substance use and unrealistic expectations of self and management of mental health symptoms which may cause internal conflict and create difficulties in maintaining progress. Client reports a strong support system however indicates difficulties with communicating mental health needs an accepting help from her supports. Functional Impact: Client endorses current symptoms have impacted her ability to function at baseline. She states that she has seen a significant impact upon socialization and increase tension in her relationships with supports. Client indicates current symptoms include increased isolation and disengagement, anhedonia, low motivation and energy, increased irritability with supports, use of substances as an avoidance mechanism, and ruminating thoughts leading to increased anxiety and depressive symptoms. Goal Relevant Strengths/Supports: Client reports having a strong support system , she has had ongoing mental health treatment since the age of 6 and is aware of terms and concepts commonly discussed, client has been engaging personality, she is highly motivated to make positive strides towards improving management of mental health symptoms, and is open and willing to try new interventions and treatment techniques. - Objectives Objective #1 Stated Objective: Client will identify current patterns of behavior negatively contributing to depressive symptoms and learn and implement 2-3 internal 2-3 external coping strategies for managing depression. Interventions: Therapist will provide psychoeducation on depression maintenance cycle and aid client in identifying current behaviors contributing to symptoms of depression and low self-worth. Therapist will help client develop insight into triggers for depression and help client to identify and implement both internal and external solutions for managing triggers in preventing exacerbation of depressive symptoms. Discharge Criteria: Client will have achieved this objective when she can effectively identify behavior patterns reinforcing depression maintenance and can utilize at least 2 internal and 2 external coping mechanisms to manage and decrease depressive symptoms. Target Date: 06/24/18 Review Date: 06/12/18 Objective #2 Stated Objective: Identify and replace 3-4 negative self-talk messages that reinforce depressive symptoms. Interventions: Therapist will help client identify distorted, negative beliefs about self and world. Therapist with discuss distorted thinking patterns and unrealistic expectations and utilize CBT and DBT methods to aide client in challenging and replacing those messages with positive, affirmative messages. Discharge Criteria: Client will have achieved this goal when can identify at least 3 negative self-talk messages and challenge and/or replace those messages with positive, affirmative messages. Target Date: 06/24/18 Review Date: 06/12/18 Problem/Goal #2 - Problem/Goal #2 Stated Goal:: Stabilize anxiety level while increasing ability to function and decreasing ruminative thoughts on a daily basis through Intensive Outpatient Program. Description of Barriers: Client has an extensive trauma history and reports intrusive traumatic thoughts and memories which may impact client's ability to challenge negative thinking patterns and use of self-deprecation. Client has a history of use of unhealthy coping mechanisms via substance use and unrealistic expectations of self and management of mental health symptoms which may cause internal conflict and create difficulties in maintaining progress. Client reports a strong support system however indicates difficulties with communicating mental health needs an accepting help from her supports. Functional Impact: Client endorses current symptoms have impacted her ability to function at baseline. She states that she has seen a significant impact upon socialization and increase tension in her relationships with supports. Client indicates current symptoms include increased isolation and disengagement, anhedonia, low motivation and energy, increased irritability with supports, use of substances as an avoidance mechanism, and ruminating thoughts leading to increased anxiety and depressive symptoms. Goal Relevant Strengths/Supports: Client reports having a strong support system , she has had ongoing mental health treatment since the age of 6 and is aware of terms and concepts commonly discussed, client has been engaging personality, she is highly motivated to make positive strides towards improving management of mental health symptoms, and is open and willing to try new interventions and treatment techniques. - Objectives Objective #1 Stated Objective: Client will identify 2-3 anxiety triggers and 2 coping skills as well as problem solving strategies to better cope and address worries. Interventions: Therapist will encourage client to use self-awareness strategies and assist client in identifying triggers for anxiety and PTSD symptoms. Work with CLient on developing coping strategies to manage ruminating thoughts and problem-solving strategies involving defining a problem, brainstorming solutions , and selecting and implementing various solutions to more realistically address worries. Discharge Criteria: Client will have achieved this goal when can verbalize at least two triggers for anxiety symptoms and implement a variety of coping and calming skills, as well as problem solving strategies to realistically address worries. Target Date: 06/24/18 Review Date: 06/12/18
--- NOTE | 2018-05-27 13:26 | BH.SGPN_ITS ---
Service Group Progress Note - Session Psychotherapy Session #1 Date Open:: 05/27/18 Time Started:: 09:10 Time Stopped:: 10:10 Type of Group:: Process - 7 group members Goal of Group:: Therapist used open-ended questions to elicit information about client's current stressors and mood state. Therapist was supportive by using active listening and reflection. Client Response/Progress/Benefit:: Spoke when prompted. Appeared attentive. Emotion for today is tired and anxious Shared with the group that she continue to work on decreasing isolation and improving relationship with family. Stated that she has a job interview for a real job this afternoon. Reports being nervous however excited. Stated that she is managing well and remarked if this were a month ago I would be a wreck. Improved self-esteeem and confidence. Tearful at times when discussing stressors and emotions related to her relationship with her father. Struggling with accepting his alcohol abuse and lack of follow through with responsibilities. Group provided support, praised her for continuing to improve herself, and offered some suggestions ( SONYA) for guidance on living with alcoholic family member. Progress noted as pt is decreasing isolation, improving decision-making, and reports improved mood. Continues to report some isolative behaviors and difficulty managing depression/anxiety however is optimistic and not hopeless. Will continue in IOP to maintain gains, prevent decompensation, and stabilize mood. Eye Contact:: Fair Motor Activity:: Restless Appearance:: Casual Speech:: Appropriate Mood:: Anxious Affect:: Congruent Thoughts:: Linear, Logical, No evidence of hallucinations/delusions noted Staff Interventions:: Therapist used open-ended questions to elicit information about client's current stressors and mood state. Therapist was supportive by using active listening and reflection.
--- NOTE | 2018-05-27 15:20 | BH.SGPN ---
Service Group Progress Note - Session Psychotherapy Session #2 Date Open:: 05/27/18 - 7 group members Time Started:: 10:25 Time Stopped:: 11:15 Targeted Problem #:: 1 Type of Group:: Illness Management Goal of Group:: To increase understanding of components of a problem, learn strategies to solve a problem and rehearse problem solving skills. Client Response/Progress/Benefit:: Client responded well to session, vocal in activity. Client appeared to connect with the topic sharing, I often struggle with solving problems. Client reported there are different types of problems such as internal, emotional, or practical. Client helped the group identify and process the ABCDEs of problem solving, connecting most with breaking down the size of the problem and using supports. Client participated in the activity, progress noted as client was assertive with presenting her ideas with peers. The group failed several times before completing and because of this client shared its okay not to fix all the problems right away, some take more time. Client appeared to benefit from learning about the ABCDEs of problems solving and using in the moment coping skills. Progress noted as client reports reduced depressive symptoms, but continues to struggle with negative thinking. Eye Contact:: Good Motor Activity:: Appropriate Appearance:: Neat Speech:: Appropriate Mood:: Anxious Affect:: Congruent Thoughts:: Linear, Logical, No evidence of hallucinations/delusions noted Staff Interventions:: Therapist facilitated group discussion about problems and the underlying components of problems. Therapist educated group about various strategies to solving a problem and provided an example of each. Therapist led group in an experiential activity that required group members to use problem solving skills to work together, rehearsing problem-solving skills. Psychotherapy Session #3 Date Open:: 05/27/18 - 6 group members Time Started:: 11:25 Time Stopped:: 12:20 Targeted Problem #:: 1 Type of Group:: Functional Skills Development Goal of Group:: To identify steps to solving a personal problem and increase awareness to those barriers that impedes the problem solving process. Client Response/Progress/Benefit:: Client responded well to session, active in discussion. Client identified Im too hard on myself as a problem she would like to overcome. Clients goal is to be more patient with herself in the treatment process. Client identified problem-solving strategies including: reminding herself daily of the accomplishments she has made, setting small daily goals to achieve, challenging self-doubt, and not setting herself up for failure. Client shared her biggest barrier is negative thinking which client plans to challenge. Client appeared to benefit from identifying steps to overcome her current problem of being too hard on herself. Client to continue IOP to promote gains and to increase mood stability. Eye Contact:: Good Motor Activity:: Appropriate Appearance:: Neat Speech:: Appropriate Mood:: Anxious Affect:: Congruent Thoughts:: Linear, Logical, No evidence of hallucinations/delusions noted Staff Interventions:: Therapist provided group members with a worksheet in which the group members were instructed to identify a problem and steps need to take to solve that problem. Then therapist instructed group members to identify those barriers that get in the way of solving the problem. Therapist led the processing of the activity. Therapist provided support by using active listening and providing feedback.
--- NOTE | 2018-05-27 15:23 | BH.SGPN_ITS ---
Service Group Progress Note - Session Psychotherapy Session #2 Date Open:: 05/27/18 - 7 group members Time Started:: 10:25 Time Stopped:: 11:15 Targeted Problem #:: 1 Type of Group:: Illness Management Goal of Group:: To increase understanding of components of a problem, learn strategies to solve a problem and rehearse problem solving skills. Client Response/Progress/Benefit:: Client responded well to session, vocal in activity. Client appeared to connect with the topic sharing, ?I often struggle with solving problems.? Client reported there are different types of problems such as internal, emotional, or practical. Client helped the group identify and process the ABCDEs of problem solving, connecting most with breaking down the size of the problem and using supports. Client participated in the activity, progress noted as client was assertive with presenting her ideas with peers. The group failed several times before completing and because of this client shared ?it?s okay not to fix all the problems right away, some take more time.? Client appeared to benefit from learning about the ABCDEs of problems solving and using in the moment coping skills. Progress noted as client reports reduced depressive symptoms, but continues to struggle with negative thinking. Eye Contact:: Good Motor Activity:: Appropriate Appearance:: Neat Speech:: Appropriate Mood:: Anxious Affect:: Congruent Thoughts:: Linear, Logical, No evidence of hallucinations/delusions noted Staff Interventions:: Therapist facilitated group discussion about problems and the underlying components of problems. Therapist educated group about various strategies to solving a problem and provided an example of each. Therapist led group in an experiential activity that required group members to use problem solving skills to work together, rehearsing problem-solving skills. Psychotherapy Session #3 Date Open:: 05/27/18 - 6 group members Time Started:: 11:25 Time Stopped:: 12:20 Targeted Problem #:: 1 Type of Group:: Functional Skills Development Goal of Group:: To identify steps to solving a personal problem and increase awareness to those barriers that impedes the problem solving process. Client Response/Progress/Benefit:: Client responded well to session, active in discussion. Client identified ?I?m too hard on myself? as a problem she would like to overcome. Client?s goal is to be more patient with herself in the treatment process. Client identified problem-solving strategies including: reminding herself daily of the accomplishments she has made, setting small daily goals to achieve, challenging self-doubt, and not setting herself up for failure. Client shared her biggest barrier is negative thinking which client plans to challenge. Client appeared to benefit from identifying steps to overcome her current problem of being too hard on herself. Client to continue IOP to promote gains and to increase mood stability. Eye Contact:: Good Motor Activity:: Appropriate Appearance:: Neat Speech:: Appropriate Mood:: Anxious Affect:: Congruent Thoughts:: Linear, Logical, No evidence of hallucinations/delusions noted Staff Interventions:: Therapist provided group members with a worksheet in which the group members were instructed to identify a problem and steps need to take to solve that problem. Then therapist instructed group members to identify those barriers that get in the way of solving the problem. Therapist led the processing of the activity. Therapist provided support by using active listening and providing feedback.
--- NOTE | 2018-05-29 10:49 | BH.SGPN ---
Service Group Progress Note - Session Psychotherapy Session #1 Date Open:: 05/29/18 Time Started:: 09:08 Time Stopped:: 10:18 Targeted Problem #:: 1 Type of Group:: Process - 7 participants Goal of Group:: The goal of today's group was to check-in with client's mood, stressors, and positives, review homework and introduce topic for the day. Client Response/Progress/Benefit:: Client receptive to session and remained engaged throughout. She discussed staying up late talking to her mother which she shared had been nice as the relationship had been tense recently. CLient discussed that her mother is beginning to recognize that she is taking her mental health seriously and working to apply skills learned in tx. Client went on to share that she had been offered the job she had been hoping for and was enxcited but nervous to be starting. CLient indicated some ongoing difficulties with falling into distorted thinking patterns or feeling as though she should be doing something or should have done something differently. Client is displaying some progress in her ability to identify distorted thinking patterns and benefitted from identifying the areas in which she is making progress. She is recommended continued IOP to further progress on individual tx goals and maintain stability as client continues to learn and apply symptom management skills. Eye Contact:: Fair Motor Activity:: Appropriate Appearance:: Casual Speech:: Appropriate Mood:: Euthymic Affect:: Congruent Thoughts:: Linear, Logical, No evidence of hallucinations/delusions noted Staff Interventions:: Therapist used open-ended questions to elicit information about client's current stressors and mood state. Therapist was supportive by using active listening and reflection.
--- NOTE | 2018-05-29 13:20 | BH.SGPN ---
Service Group Progress Note - Session Psychotherapy Session #2 Date Open:: 05/29/18 Time Started:: 10:30 Time Stopped:: 11:20 Targeted Problem #:: 1 Type of Group:: Illness Management Goal of Group:: To increase understanding of cognitive distortions, identify examples of when have had unhelpful thinking, and increase awareness of the impact cognitive distortions have on mental health. Client Response/Progress/Benefit:: Client alert and oriented, contributed thoughts and ideas to discussion and listened attentively to others. Client connected with cognitive distortions, reported she recognizes at some point she has fallen into using each distortion. Client gave example that in the past she had a boyfriend that cheated on her so now she overgeneralizes that every boyfriend she has will cheat on her. Able to recogize how this thought hurts her relationships and can contribute to the relationship not working out. Client seemed to benefit from increasing awareness about cognitive distortions and how her thoughts can impact relationships and progress. Eye Contact:: Good Motor Activity:: Appropriate Appearance:: Casual Speech:: Appropriate Mood:: Anxious, Dysthymic Affect:: Congruent Thoughts:: Linear, Logical, No evidence of hallucinations/delusions noted Staff Interventions:: Therapist provided group members with a handout that listed ten cognitive distortions with examples. Therapist facilitated group discussion about cognitive distortions. Therapist led group members in an activity to help them understand the impact cognitive distortions can have on emotions and behavior. Therapist provided support by using active listening and providing feedback. Psychotherapy Session #3 Date Open:: 05/29/18 Time Started:: 11:30 Time Stopped:: 12:20 Targeted Problem #:: 1 Type of Group:: Functional Skills Development Goal of Group:: To identify ways of defeating cognitive distortions and rehearse defeating the identified cognitive distortion. Client Response/Progress/Benefit:: Client contributed to discussion and listened attentively to peers. Client identified a distorted thought she has is If I rest on the couch then I'm not doing enough. Client reported the thought results in her feeling guility and depressed. Client shared she recognizes she is overgeneralizing becuase she used to sleep and rest all the time so now believes she can't sit down to relax at all. Client able to reframe thought It is okay to relax for a little bit because she is now doing more throughout her day. Client seemed to benefit from rehearsing recognizing and challenging distorted thoughts. Eye Contact:: Good Motor Activity:: Appropriate Appearance:: Casual Speech:: Appropriate Mood:: Anxious, Dysthymic Affect:: Congruent Thoughts:: Linear, Logical, No evidence of hallucinations/delusions noted Staff Interventions:: Therapist utilized an activity as a tool in helping clients connect the amount of effort one will need to put forth to defeat cognitive distortions. Therapist provided group members with a handout to use as an aid when trying to defeat their unhelpful thinking. Therapist processed the worksheet with group members, helping them reframe the cognitive distortions.
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
[2018-07-17 11:25] VITALS: BP 104/60; PULSE 48; RESP 14
== END 2018-05-30 23:59 ==
LOC: BHIOP 08:30
PROVIDERS: Visit Provider Psychiatry & Neurology Psychiatry
DX: F33.2 Major depressive disorder, recurrent severe without psychotic features (principal); F41.9 Anxiety disorder, unspecified; F43.10 Post-traumatic stress disorder, unspecified; F12.20 Cannabis dependence, uncomplicated; F17.210 Nicotine dependence, cigarettes, uncomplicated; Z79.899 Other long term (current) drug therapy
CPT/HCPCS: H0035; 90832; 90834; 90853

== ENCOUNTER 2018-06-01 09:00 | Outpatient (RCR) | payer OTHER, SELFPAY ==
--- NOTE | 2018-06-01 11:33 | BH.SGPN_ITS ---
Service Group Progress Note - Session Psychotherapy Session #1 Date Open:: 06/01/18 - 5 group members Time Started:: 09:05 Time Stopped:: 10:05 Targeted Problem #:: 1 Type of Group:: Process Goal of Group:: The goal of today's group was to check-in with client's mood, stressors, and positives, and review homework. Client Response/Progress/Benefit:: Client responded well to session, appearing receptive to feedback from peers. Client stated this weekend was full of crazy emotions as client experienced panic, feeling proud, anxiety, and grief in waves over the past two days. Client stated she went to a concert with her boss and coworkers which client thought would be fun, but ended up being overwhelming , exacerbated anxiety, and triggered client to drink. Client shared overall, she felt like she managed the situation well, as client did not drink and she texted her mother to come pick her up. However, client stated at one point there was a miscommunication and client's mother thought client was drinking at a bar. Client stated she and her mother were able to clarify and client reported her mother said she was proud of client. Client shared the weekend was also challenging because she was missing her sister who . Client stated her grief comes in waves and often client and her mother experience them at the same time. Client reported she continues to have a hard time talking about her grief with her mother. Client was receptive to feedback from peers on ways to increase communication on this topic with her mother and help client get her needs met. Client shared on a positive note, she used a new coping skill , jogging, to manage a panic attack which made client proud. Client appeared to benefit from processing her emotions and reflecting on progress. Progress noted as shown by client's reduced isolation and improved mood, but can continue to benefit from challenging negative thoughts and increasing self-confidence. Eye Contact:: Good Motor Activity:: Restless Appearance:: Neat Speech:: Appropriate Mood:: Euthymic, Anxious Affect:: Full Thoughts:: Linear, Logical, No evidence of hallucinations/delusions noted Staff Interventions:: Therapist used open-ended questions to elicit information about client's current stressors and mood state. Therapist was supportive by using active listening and reflection.
--- NOTE | 2018-06-01 14:18 | BH.SGPN ---
Service Group Progress Note - Session Psychotherapy Session #2 Date Open:: 06/01/18 Time Started:: 10:13 Time Stopped:: 11:04 Targeted Problem #:: 1 Type of Group:: Illness Management - 4 participants Goal of Group:: To increase understanding of fear and explore the negative impact fear of failure can have on mental health and decision making. Client Response/Progress/Benefit:: Client responded well to session, engaged throughout. She worked with the group to define failure and discuss how one's definition of failure may change based on where they are emotionally. Client expressed connecting with the group topic of fear of failure. Client indicates struggling with siginificant rumination about what might happen if she makes the wrong choice and ends letting herself or others down. She benefitted from participating in the [employer] activity in which clients were faced with making several decisions as an individual that could impact the group progress as a whole. CLient displayed progress in her ability to identify using her supports in the activity as a skill that may be transferable to daily life. CLient recommended continued IOP to maintain stability and continue client development of healthy skills. Eye Contact:: Good Motor Activity:: Appropriate Appearance:: Casual Speech:: Appropriate, Soft Mood:: Euthymic, Anxious Affect:: Constricted Thoughts:: Linear, Logical, No evidence of hallucinations/delusions noted Staff Interventions:: Therapist facilitated discussion about fear and impact fear of failure can have. Therapist led group in an experiential activity in which clients would fail numerous times throughout, but were given the opportunity to try again. Therapist led the processing of the activity and assisted clients with connecting how fear of failure impacted their decision making during the activity. Psychotherapy Session #3 Date Open:: 06/01/18 Time Started:: 11:13 Time Stopped:: 12:15 Targeted Problem #:: 1 Type of Group:: Functional Skills Development - 5 participants Goal of Group:: To identify the impact fear of failure has had on the group members lives and identify strategies to overcome fear of failure. Client Response/Progress/Benefit:: Client responded well to session, engaged in discussion throughout. She was willing to reflect with the group ways in which fear of failure has previously and may currently be impacting daily life. CLient indicated that fear of failure has caused her to isolate in the past and avoid making decisions. She shared struggling to identify potential strategies for overcoming this fear and benefitted from brainstorming this with the group. CLient expressed that finding healthy supports and reminding herself to remain patient and that failure is normal may be helpful in improving anxiety management. Recommended continued IOP to further client insight regarding mental health warning signs and triggers as well as promote use of healthy coping. Eye Contact:: Good Motor Activity:: Appropriate Appearance:: Casual Speech:: Appropriate, Soft Mood:: Euthymic Affect:: Constricted, Congruent Thoughts:: Linear, Logical, No evidence of hallucinations/delusions noted Staff Interventions:: Therapist provided each group member with a worksheet to complete that asked questions about their experiences with fear of failure. Therapist led the processing of the worksheet, helping clients connect how fear of failure has impacted them. Therapist provided support by using active listening and providing feedback.
--- NOTE | 2018-06-01 14:40 | BH.SGPN_ITS ---
Service Group Progress Note - Session Psychotherapy Session #2 Date Open:: 06/01/18 Time Started:: 10:13 Time Stopped:: 11:04 Targeted Problem #:: 1 Type of Group:: Illness Management - 4 participants Goal of Group:: To increase understanding of fear and explore the negative impact fear of failure can have on mental health and decision making. Client Response/Progress/Benefit:: Client responded well to session, engaged throughout. She worked with the group to define failure and discuss how one's definition of failure may change based on where they are emotionally. Client expressed connecting with the group topic of fear of failure. Client indicates struggling with siginificant rumination about what might happen if she makes the wrong choice and ends letting herself or others down. She benefitted from participating in the [employer] activity in which clients were faced with making several decisions as an individual that could impact the group progress as a whole. CLient displayed progress in her ability to identify using her supports in the activity as a skill that may be transferable to daily life. CLient recommended continued IOP to maintain stability and continue client development of healthy skills. Eye Contact:: Good Motor Activity:: Appropriate Appearance:: Casual Speech:: Appropriate, Soft Mood:: Euthymic, Anxious Affect:: Constricted Thoughts:: Linear, Logical, No evidence of hallucinations/delusions noted Staff Interventions:: Therapist facilitated discussion about fear and impact fear of failure can have. Therapist led group in an experiential activity in which client?s would fail numerous times throughout, but were given the opportunity to try again. Therapist led the processing of the activity and assisted clients with connecting how fear of failure impacted their decision making during the activity. Psychotherapy Session #3 Date Open:: 06/01/18 Time Started:: 11:13 Time Stopped:: 12:15 Targeted Problem #:: 1 Type of Group:: Functional Skills Development - 5 participants Goal of Group:: To identify the impact fear of failure has had on the group members lives and identify strategies to overcome fear of failure. Client Response/Progress/Benefit:: Client responded well to session, engaged in discussion throughout. She was willing to reflect with the group ways in which fear of failure has previously and may currently be impacting daily life. CLient indicated that fear of failure has caused her to isolate in the past and avoid making decisions. She shared struggling to identify potential strategies for overcoming this fear and benefitted from brainstorming this with the group. CLient expressed that finding healthy supports and reminding herself to remain patient and that failure is normal may be helpful in improving anxiety management. Recommended continued IOP to further client insight regarding mental health warning signs and triggers as well as promote use of healthy coping. Eye Contact:: Good Motor Activity:: Appropriate Appearance:: Casual Speech:: Appropriate, Soft Mood:: Euthymic Affect:: Constricted, Congruent Thoughts:: Linear, Logical, No evidence of hallucinations/delusions noted Staff Interventions:: Therapist provided each group member with a worksheet to complete that asked questions about their experiences with fear of failure. Therapist led the processing of the worksheet, helping client?s connect how fear of failure has impacted them. Therapist provided support by using active listening and providing feedback.
--- NOTE | 2018-06-02 11:09 | BH.MDN ---
Multi-Disciplinary Note - Note 30-min Individual Time Started:: 09:25 Date: 06/02/18 Purpose of session/treatment goals addressed:: The purpose of this session was to assess current symptoms and treatment goal progress. Another goal was to discuss communicating needs with supports and strategies for establishing and maintaining healthy emotional boundaries. Eye Contact:: Good Motor Activity:: Appropriate Appearance:: Casual Speech:: Appropriate Mood:: Euthymic, Anxious Affect:: Congruent Thoughts:: Linear, Logical, No evidence of hallucinations/delusions noted Staff Interventions:: Asked open-ended questions to gather questions regarding client perception of current symptom management and progress in treatment. Provided psychoeducation on healthy boundary setting. Utilized UT techniques to elicit change behaviors and promote healthy bounary setting, as well as consequences of not doing so. Client Response:: Client receptive of meeting for session, engaged throughout. She reports continuing to do well with refraining from engaging isolative behaviors and is recognizing the positive impact on managing her mental health symptoms. CLient explained that it has become easier to keep from isolating as she has started working two jobs and has been putting forth more effort to spend time with positive supports and family. Client expressed some concerns that she may be overloading herself and will become burnt out. CLient open to discussing strategies for maintaining healthy work/life balance and potential warning signs that she may need to scale back on commitments. CLient identified one area she feels would alleviate some stress. She went on to share feeling as though she has been her mother's sole source of emotional support recently. Client expressed that has become overwhelming and causes her to feel torn. She explained that on the one hand client wants her mother to feel like she cares and is supportive but on the other she wants to be treated like her daughter and not her best friend. CLient noted wishing her mother could apply the advice she give client to her own life as her mother often uses avoidance or toxic supports to cope with stressors. Client discussed with therapist believing that having a conversation with her mother about this would be helpful and that her mother would understand but fears making her mother feel bad or hurting her feelings. CLient and therapist completed a decisional balance reviewing the the consequences of having the discussion vs. Not. CClient identified benefits to both her and her mother's mental health if she vocalized her concerns. Client expressed plans to set aside time to do so this week. Risks/Concerns:: No risks or concerns noted. Client denies si, plan, or intent as of 06/02/18 Progress Toward Goals/Plan:: Client continues to make steady progress in IOP program. Client reports improved ability to utilize healthy skills to prevent isolation and manage symptoms of depression and anxiety. Client continues to struggle with distorted thinking patterns and rumination, however is displaying progress in her ability to identify and challenge feelings of overwhelming anxiety and depression and reframe thoughts. Client reports ongoing difficulties in maintaining healthy emotional boundaries with her supports, though was receptive of discussing her needs and concerns with supports. Encouraged to consider family therapy session. Plan is to continue IOP to further progress with tx goals, maintain gains, prevent decompensation, as well as increase use of tx concepts discussed. Time Stopped:: 10:02
--- NOTE | 2018-06-02 14:58 | BH.SGPN_ITS ---
Service Group Progress Note - Session Psychotherapy Session #2 Date Open:: 06/02/18 Time Started:: 10:20 Time Stopped:: 11:15 Targeted Problem #:: 1 Type of Group:: Illness Management - 5 group members Goal of Group:: To increase understanding of a crisis and improve clients awareness of how he/she feels when in a crisis. Client Response/Progress/Benefit:: client tended to be quiet, contributing her thoughts and ideas at times. client shared she tends to deal with crisis by isolating and avoiding everything. Shared she used sleeping as her main way to cope in the past, which she recognizes didn't help her get better or resolve the stressor. Client reported when she is in a crisis she has learned she tends to catastrophize smaller problems and minimize large problems as not a big deal . Client reported by doing this she doesn't deal with the large problems which results in increased issues. Client seemed to benefit from increased insight into how her response to a crisis can impact her. Eye Contact:: Fair Motor Activity:: Appropriate Appearance:: Casual Speech:: Appropriate Mood:: Anxious, Dysthymic Affect:: Congruent Thoughts:: Linear, Logical, No evidence of hallucinations/delusions noted Staff Interventions:: Therapist facilitated group discussion about defining a crisis and specifying various events that are considered a crisis. Therapist led group in an activity in which group members had to identify their thoughts and emotions attached to being in a crisis. Therapist provided support by using active listening and providing feedback. Psychotherapy Session #3 Date Open:: 06/02/18 Time Started:: 11:25 Time Stopped:: 12:15 Targeted Problem #:: 1 Type of Group:: Functional Skills Development - 5 group members Goal of Group:: To increase awareness of warning signs before a crisis and identify interventions/coping strategies that would help clients proactively manage potential crises. Client Response/Progress/Benefit:: client engaged and active participant throughout session. Client identified her top three warning signs she's starting to struggle include: unusal drop in functioning, avoiding/isolating, and trying to find a signficiant other. Client shared for her crisis kit she picked a rock to remind her nature is helpful to her. A shell to remind her of her [place] trip. A teabag to remind her that tea is soothing and has positive memories with her mom. A animal bead to remind her of her love for animals and kari of going to the zoo. Client shared she picked a straw to remind me it's okay to drink out of my own cup at times, that I don't only have to care for others. Client seemed to benefit from increasing awareness of her warning signs and creating a survival kit that includes reminders of her healthy skills. Eye Contact:: Fair Motor Activity:: Appropriate Appearance:: Casual Speech:: Appropriate Mood:: Anxious, Dysthymic Affect:: Congruent Thoughts:: Linear, Logical, No evidence of hallucinations/delusions noted Staff Interventions:: Therapist led the group in discussion about identifying personal warning signs before a crisis and importance of being aware of those signs.Therapist provided the group with various types of items and asked each group member to select five items that represent something that would be helpful in managing their warning signs of a crisis. Therapist facilitated group processing of the crisis emergency kits each group member created. Therapist used open-ended questions to encourage elaboration of each item chosen for their kit. Therapist helped clients connect how the crisis emergency kit could help be a crisis prevention tool.
--- NOTE | 2018-06-05 09:05 | BH.SGPN.GN ---
Behaviors/Verbalizations/Mental Status: [] Pt eye contact good, casually dressed, motor activity appropriate, speech normal rate and tone, mood euthymic, congruent affect, thoughts linear and intact, no evidence of delusions or hallucinations. Client Response/Progress/Benefit: []Client reported she is feeling tired this morning, but stated it's a good tired. Client shared in the past when she was depressed her brain would feel tired and her body would be ready to move, but she was too emotionally exhausted to get out of bed. Client reported for about a week her brain hasn't been exhausted, which she states is the first time in 4 years she has felt like this. Client reported she is able to work two jobs and be much more after. Client shared she is starting to act like the person she always wanted to be. Client reported she recognizes she will still have bad days, but believes she has better tools to help her move on from those rough patches. Client identified her emotion to be more alive. Client demonstrating progress AEB client reporting decrease in depression and decrease in isolative behaviors. Plan is to continue IOP level of care to maintain gains and prevent decompensation.
--- NOTE | 2018-06-05 10:15 | BH.SGPN.GN ---
Behaviors/Verbalizations/Mental Status: []Client alert and oriented, fair eye contact, motor activity normal, speech within normal limits, dress appropriate, mood euthymic, affect full, logical, linear thoughts, no signs of hallucinations or delusions. Client Response/Progress/Benefit: [] Client responded well to session, active participant and contributing to discussion. Client connected with the quote sharing, the easy path is comfortable, but it makes you feel terrible. Client shared pitfalls are setbacks or things that keep someone from progressing. Client she has pitfalls that she is just now becoming aware of and some she has pretended are not there. Client stated negative thinking and self-sabotage can make a person more vulnerable to pitfalls. Client participated in the activity and processed with peers that self-awareness, managing emotions, and communicating with supports are important for avoiding pitfalls. Client appeared to benefit from increasing awareness of pitfalls and how they impact mental health. Progress noted as shown by client's increase self-awareness and report of reduced isolation, but continues to report negative thinking and anxiety.
--- NOTE | 2018-06-05 10:32 | PN_ITS ---
Progress Note Patient seen in follow-up for major depressive disorder F 33.2, anxiety unspecified, PTSD and cannabis use. History is been obtained per interview with patient, discussion with staff, review of chart. Case discussed with treatment team. Chief complaint-depression and anxiety I feel more alive than I have been a few years. Interim history Patient reports mood improvement over the past 3 weeks. Mild depressive symptoms persist but of decreased intensity. Easier to push through. Reports increased focus and concentration. 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 Continues working at the [employer] in the evening. Moderate ruminative anxiety about starting a new job. Recognizes that it is normal to have anxiety about a new job but feels that her anxiety likely exceeds normal intensity. Using coping skills to manage anxiety. Attributes improvement to coping skills and healthier lifestyle of stopping marijuana. Acknowledges that she previously used marijuana as an avoidance. No suicidal or homicidal ideation. No symptoms consistent with psychosis. Sleeping 8 hours per night. Appetite normal. Denies nausea vomiting or diarrhea. Smoking 2 cigarettes/week. Denies cannabis use. Denies energy drinks or caffeine. Denies ingestion of alcohol. Mental status exam Alert and oriented . No acute distress. Ambulatory with normal gait and station. Appears stated age. Casually dressed and groomed. Appropriate hygiene. Cooperative with interview. Good eye contact. No psychomotor agitation or retardation. Mood improved.. Affect congruent. Speech is clear and with regular rate and rhythm. Language fluent. Thought process organized. Associations logical. Thought content significant for ruminative anxiety. No suicidal or homicidal ideation related or detected. No symptoms consistent with psychosis noted or detected. Immediate recent and remote memory grossly intact. Attention and concentration are fair. Estimated intelligence and fund of knowledge average. Judgment and insight improved. Labs and testing Lab work requested from primary care physician. Further lab work will be obtained as needed. Diagnosis Major depressive disorder recurrent severe F 33.2 Anxiety unspecified PTSD Cannabis use Plan Continue IOP as a structured setting is necessary to maintain gains and prevent decompensation. It is unclear if gains will be sustained. Risks benefits alternatives of medications discussed with patient. Patient acknowledges understanding. Patient declines medications at this time. Encouraged ongoing cannabis abstinence. Encouraged caffeine abstinence. Continue follow-up with Lore Zhang at [facility]. Patient acknowledges understanding and is in agreement with plan. Feels able to maintain safety. Agrees to seek help or emergency care if feeling unsafe to self or others.
--- NOTE | 2018-06-05 11:15 | BH.SGPN.GN ---
Behaviors/Verbalizations/Mental Status: []Client alert and oriented, good eye contact, motor activity normal, speech within normal limits, dress appropriate, mood euthymic, affect congruent, logical, linear thoughts, no signs of hallucinations or delusions. Client Response/Progress/Benefit: []Client responded well to session, active participant and making positive contributions. Client identified her personal pitfalls as staying in bed, negative self-talk, ignoring positives, and not being patient with herself. Client stated she is starting to recognize her pitfalls and prevent them as client does not want to get back to being super depressed. Client helped the group identify strategies to prevent pitfalls such challenging negative thoughts, giving herself permission to be patient, mindfulness, and positive self-talk. Client appeared to benefit from gaining awareness of her personal pitfalls, so client can use coping strategies to avoid and overcome future pitfalls. Client progressing with reducing isolation, but continues to struggle with negative self-talk and communicating her needs with supports.
--- NOTE | 2018-06-08 09:10 | BH.SGPN.GN ---
Behaviors/Verbalizations/Mental Status: [] Client eye contact consistent throughout session, motor activity appropriate. Appearance well groomed, and casual. Speech was soft, though WNL. Client indicated being tired and mood appeared dysthymic, expressed as good but heavy hearted. Affect congruent. Thoughts linear, logical, and free of apparent delusion/hallucination. Client Response/Progress/Benefit: [] Client responded well to session and was an active participant throughout. She discussed that she is glad to be at her new place of employment as she really enjoys the environment and that this has allowed her to spend time alone in a productive manner she is comfortable with. Client discussed that she had a positive weekend though experienced two incidents in which she felt anxious and unsure of how to cope. CLient indicated that on one occassion her PTSD had been triggered when several copra processor cars and an ambulance drove past her house. CLient shared that this triggered thoughts of her sister's and caused client to want to shut down and numb herself by using substances. She shared that instead she reached out to her mother who helped client to talk through the difficult emotions and process. Client indicated that this was a first for her and she benefitted from the group pointing out to client how much progress she made over the weekend by being able to accept help and process rather than run away. Client indicated feeling proud of herself. She is recommended continued IOP to increase consistency of client use of healthy supports and maintain stability while improving mental health sx management.
--- NOTE | 2018-06-08 10:27 | BH.SGPN.GN ---
Behaviors/Verbalizations/Mental Status: []Client alert and oriented, neatly dressed and groomed. Eye contact good. Motor activity appropriate. Speech within normal limits. Affect constricted, mood dysthymic. Thoughts linear, logical, no signs of hallucinations or delusions. Client Response/Progress/Benefit: []Client responded well to session, participating when prompted. Client connected with the quote sharing, I used to think I couldnt change my thoughts, but I can, and it helps when I deal with stress. Client helped group identify the physical, mental, behavioral, and emotional impacts of stress. Client reported some stress is good stress, but when one experiences continued stress it can lead to self-harm, depression, and hopelessness. Client shared she starts recognizing stress mentally and physically first. Client identified current stressors in her life such as friends, family, work, avoiding drugs, and staying out of bed. Client shared her stress jar is at the very top, and client wants to reduce some stressors before she feels completed overwhelmed. Client stated when she does not manage stress, client isolates and has the urge to smoke to numb and avoid. Client appeared to benefit from gaining awareness of her current stressors and how they impact mental health. Client to continue IOP to prevent decompensation and increase coping to triggers.
--- NOTE | 2018-06-08 11:08 | BH.SGPN ---
Service Group Progress Note - Session Psychotherapy Session #1 Date Open:: 06/08/18 Time Started:: 09:10 Time Stopped:: 10:21 Targeted Problem #:: 1 Type of Group:: Process - 8 participants Goal of Group:: The goal of today's group was to check-in with client's mood, stressors, and positives, review homework and introduce topic for the day. Eye Contact:: Good Motor Activity:: Appropriate Appearance:: Casual Speech:: Soft Mood:: Dysthymic Affect:: Congruent Thoughts:: Linear, Logical, No evidence of hallucinations/delusions noted Staff Interventions:: Therapist used open-ended questions to elicit information about client's current stressors and mood state. Therapist was supportive by using active listening and reflection.
--- NOTE | 2018-06-08 11:29 | BH.SGPN.GN ---
Behaviors/Verbalizations/Mental Status: []Client alert and oriented, neatly dressed and groomed. Eye contact good. Motor activity appropriate. Speech within normal limits. Affect constricted, mood dysthymic, anxious. Thoughts linear, logical, no signs of hallucinations or delusions Client Response/Progress/Benefit: []Client responded well to session, active participant. Client engaged in the group activity and connected it to managing stress sharing, its about breaking it down and accepting some stress will always be there. Client helped the group create a list of helpful stress management strategies and identified strategies that would help her deal with stress such as acceptance, positive self-talk, setting small goals, avoidance solves nothing, and focusing on stressors in her control. Client reported of her current stressors, staying out of bed and using self-care are in clients control. Client was receptive to learning the four As of coping with stress and appeared to benefit from learning different ways to manage stress. Client seems to be progressing as evidenced by her report of reduced isolation and improved ability to combat negative thoughts. Client can continue to benefit from IOP to prevent decompensation and increase mood stability.
--- NOTE | 2018-06-09 10:20 | BH.SGPN.GN ---
Behaviors/Verbalizations/Mental Status: [] Pt eye contact good, casual dress, speech and tone appropriate, thoughts linear and intact, no evidence of delusions or hallucinations, mood euthymic. Client Response/Progress/Benefit: [] Pt engaged and active throughout session AEB many contributions and listened attentively to others. Pt connected with the quote that having a positive support network can help her feel more secure. Pt able to identify the benefits of having social supports. Pt reported she wants to have better balance between her external supports and internal supports. Shared she wants to be able to rely on herself when needed, however reported she knows social support can help provide guidance and challenge her irrational thoughts. Pt seemed to benefit from learning about the benefits of social support as well as engaging in activity that required pt to utilize her supports.
--- NOTE | 2018-06-09 11:20 | BH.SGPN.GN ---
Behaviors/Verbalizations/Mental Status: [] Pt eye contact good, motor activity appropriate, alert and oriented, thoughts logical and linear, no evidence of delusions or hallucinations, mood euthymic. Client Response/Progress/Benefit: [] Pt contributed positively to discussion and listened attentively to others. Pt reported she struggles with communicating what she needs to her support system, as a result sometimes doesn't get the help she needs. Pt recognized it's important for herself to identify what she type of support she prefers from her support system. Pt shared when she doesn't share how she feels or what she needs it is hurting herself because some things can't be resolved on her own. Pt seemed to benefit from group identifying strategies to improve communication among support system.
--- NOTE | 2018-06-09 14:49 | BH.MDN ---
Multi-Disciplinary Note - Note 60-min Individual Time Started:: 09:20 Date: 06/09/18 Purpose of session/treatment goals addressed:: The purpose of this session was to assess current symptoms, evaluate progress and establish ongoing therapy goals. Another goal was to review effective coping skills and strategies for maintaining gains made. Additional topics included: communicating needs and maintaining boundaries with support Eye Contact:: Good Motor Activity:: Appropriate Appearance:: Casual Speech:: Soft Mood:: Euthymic Affect:: Congruent Thoughts:: Linear, Logical, No evidence of hallucinations/delusions noted Staff Interventions:: Therapist used open-ended questions and the DSM-5 cross cutting symptom measure to evaluate and tami client's progress. Therapist processed client's progress with client and helped client identify goals moving forward and strategies for continued mood stability and to maintain gains. Therapist used strengths-based perspective to empower client on progress. Discussed areas of ongoing difficulty and current symptoms and stressors. Worked with client to problem-solve current frustrations in assuring her supports understand Client mental health needs. Client Response:: Client responded well to session, open to meeting with this therapist. Client discussed feeling proud of herself for how well she had dealt with a PTSD trigger over the weekend and indicated I really wanted to run away and go smoke but I didn't. Client indicated that instead she had been able to verbalize the trigger and her desire to run to her mother who aided Client in grounding herself and calming down. Client expressed that she has never previously tried talking to her mother when triggered by something and was surprised as to how helpful it had been. Client when on to discuss that she has been making a conscious effort to really begin confronting and processing her emotions and triggers as they occur. She shared that she does not want to go back to functioning in the way she had been prior to attending the program as she felt as though she was constantly numb to the world around her. Client and therapist discussed client current progress in the IOP program as this is her mid-point marker. Client identified seeing progress in her ability to better manage her emotions and reach out to supports rather than avoid or turn to unhealthy coping skills. Client indicated continuing to refrain from use of marijuana as a primary coping tool. She completed the DSM-5 cross-cutting symptom measure survey and was able to review scores now compared with when she first began the program, observing a significant decrease in areas of depression and anxiety. Client indicated not thinking she had actually made that much of an improvement in her mental health and feeling proud of the progress she has made. Client discussed having the conversation with her mother about establishing emotional boundaries and what client needs to continue to promote maintaining gains made. Client shared that the conversation went well at first and mom indicated understanding that client cannot be her sole confidant; however, did not appear to fully resonate as client has not observed any changes in her mother's behavior. CLient and therapist discussed alternative ways to reproach the conversation and attempt to more effectively relay client needs in a way that she can connect with. Client and therapist discussed additional strategies for client to continue to promote and maintain positive treatment progress and healthy boundaries moving forward. She expressed wanting to continue to work on consistent use of healthy skills and challenging her expectations for self and use of negative self talk throughout the remainder of treatment. Risks/Concerns:: No risks or concerns at this time. Client denies suicidal ideation, plan, or intent as of 06/09/18 and is aware of crisis resources available. Progress Toward Goals/Plan:: Client is demonstrating consistent progress towards treatment goals as evidenced by a reduction of 18 point in overall score of the DSM-5 symptom measure. Client additionally reports recognizing improvements in her mood, energy levels, decreased use of catastrophizing, increased communication with supports, and use of healthy coping skills as opposed to previously used substances or isolation to cope. However, client does continue to report mild feelings of anxiety associated with maintaining gains and being able to manage all client's responsibilities. Client additionally continues to experience difficulties in asserting emotional boundaries with her mother whom is CLient primary support. Client to continue IOP to prevent decompensation and promote further mood stability. Client to follow up with outpatient counseling. Time Stopped:: 10:25
--- NOTE | 2018-06-22 09:10 | BH.SGPN.GN ---
Behaviors/Verbalizations/Mental Status: [] Pt eye contact good, casually dressed, motor activity appropriate, speech normal rate and tone, mood euthymic, congruent affect, thoughts linear and intact, no evidence of delusions or hallucinations. Reviewed client?s symptom tracker, no signs of suicidal ideation, plan, or intent as of today. Client Response/Progress/Benefit: [] Client reported she went on vacation for a couple days last week with her family and had a really good time white water rafting. Client reported when she got back she had a work a lot which she is starting to recognize is burning her out. Client reported 1 of her jobs is starting to slow down to now she will only have to work 2 jobs twice a week versus working 2 jobs every day. Client recognizes she was overdoing it those weeks and needs to take a step back. Client reports she did feel a little guilty on Friday for taking a rest day and not doing much since she did not have to work. Client shared after talking to her mom about her guilt seemed to help and she recognizes it was okay for her to take 1 rest day because in the past she she is to do nothing every day. Client shared 1 of her friends had a over the weekend and client became really anxious because she did not know how she can support her friend without triggering herself. Client reports she knows she can attend client of ours or since her sister 4 years ago. Client shared she was able to recognize one thing that she can do is help her friend with self-care because that is hard when you are going through grief so client shared she created a self-care bag and delivered it to her friend. Client demonstrating progress as evidenced by her reporting decreased depression, improved problem solving skills and utilizing her healthy coping strategies. Client to continue IOP level of care to maintain gains and prevent decompensation. Narrative Note: []
--- NOTE | 2018-06-22 10:22 | BH.SGPN.GN ---
Behaviors/Verbalizations/Mental Status: [Client eye contact fair - inconsistent or dazing off at times, casually dressed, motor activity WNL, speech normal rate and tone - soft, mood euthymic, anxious, congruent affect, thoughts linear and logical, no evidence of delusions or hallucinations.] Client Response/Progress/Benefit: [Client responded well to session and was an active participant in both the activity and discussion portions of group. She did well to work with fellow participants on processing the emotions associated with change, ways change may impact mental health, as well as what makes managing change difficult. Client discussed that sometimes there are bad times to talk to people about changes we are making which makes it hard to know the right time, especially if we know it is news they wont want to hear. Client expressed that for her change is having to deal with a lot of unknowns which in the past has resulted in client shutting down or isolating. CLient benefitted from reflecting upon a personal experience in which an unwelcomed change turned out to be positive as it encourage client to receive mental health tx. SHe is displaying progress in her ability to identify warning signs associated with depression as she shared seeing herself beginning to struggle with some similar negative thoughts that led to IOP tx however is also identifying effective intervetions to begin incorporating. CLient recommended continued IOP to increase management of depressive sx and prevent decompensation. ] Narrative Note: []
--- NOTE | 2018-06-22 11:29 | BH.SGPN.GN ---
Behaviors/Verbalizations/Mental Status: [Client eye contact fair, casually dressed, motor activity WNL, speech normal rate and tone, mood dysthymic, anxious, congruent affect, thoughts linear and logical, no evidence of delusions or hallucinations.] Client Response/Progress/Benefit: [Client responded well to session and again was an active participant throughout. She appeared to benefit from the LUMO[place] activity as client became more engage during such. She did well to reflect upon ways the group had to adjust to the changing environment in the activity and how this relates to changes in daily life. CLient identified effective communication and realistic expectations as too maria components for succeeding in the activity and shared that these are also strategies that could improve our ability to adjust to changes in our own lives. She is displaying progress in more openly discussing her current sx and progress and displays less use of minimization. Recommended continue IOP tx to prevent decompensation and continue to improve depression management skills.] Narrative Note: []
--- NOTE | 2018-06-22 15:26 | BH.COMM ---
Communication Note - Communication with Client Communication Note: Therapist met briefly with CLient to discuss Client perception of treatment progress, current sx, and potential discharge date. Client discussed feeling as though she has made significant progress forward; however, is anxious that she will not be able to maintain gains following discharge given a recent difficulty in managing sx while on vacation. CLient and therapist discussed setbacks and onging maintainence as part of treatment process as well as reviewed strategies for maintaining current gains. CLient and therapist discussed beginning after care planning with potential discharge as 07/03.
--- NOTE | 2018-06-23 09:04 | BH.SGPN.GN ---
Behaviors/Verbalizations/Mental Status: [Client eye contact fair - at times appearing to star down or away distantly, casually dressed,grooming and hygiene appropriate, motor activity WNL, speech normal rate and tone, mood dysthymic, frustrated, agitated, congruent affect, thoughts linear and logical, no evidence of delusions or hallucinations. Therapist reviewed clients symptom tracker to assess for intensity of mental health symptoms and identify risk for suicide. No signs of suicidal ideation, plan, or intent to date.] Client Response/Progress/Benefit: [Client receptive of session and openly shared with the group. She discussed feeling frustrated with the conversation she had with her mother the previous night. Client went on to describe disclosing to her mother that she had been experiencing urges to return to previous destructive behavior in hopes that her mother would help to support and encourage Client in maintaining sobriety. She discussed instead feeling as though her mother was lecturing and judging her rather than providing support. CLient described this as irritating and causing her to want to keep from sharing in the future. She benefitted from feedback provided by the group in which client was challenged to look at the situation from her moms perspective as well. Client displaying progress in her ability to identify warning signs and ask for help. She is recommended continued IOP tx to prevent decompensation and promote ongoing application of depression management skills identified. ] Narrative Note: []
--- NOTE | 2018-06-23 10:30 | BH.SGPN.GN ---
Behaviors/Verbalizations/Mental Status: []Client alert and oriented, neatly dressed and groomed. Eye contact good. Motor activity appropriate. Speech, soft, within normal limits. Affect constricted, mood anxious, depressed. Thoughts linear, logical, no signs of hallucinations or delusions. Client Response/Progress/Benefit: []Client responded well to session, quiet, but participating when prompted. Client appeared to connect with the quote, sharing, Im trying to be more aware of how I view things. Client contributing to the discussion of automatic thoughts and how negative automatic thoughts can impact emotions and behaviors. Client shared a negative automatic thought can lead to rumination and isolation. Client helped the group identify the common cognitive distortions. Client reported in the past she would minimize and make small of her emotions and depression. Client stated she also uses disqualifying the positives. Client shared belief she is doing better at recognizing the negative thoughts actively challenging them. Client appeared to benefit from gaining awareness of the cognitive distortions and how negative thinking impacts mental health and self-esteem. Client seems to be progressing as shown by her report of increase ability to combat negative thoughts, but client continues to struggle coping with triggers and managing symptoms of depression.
--- NOTE | 2018-06-23 11:33 | BH.SGPN.GN ---
Behaviors/Verbalizations/Mental Status: []Client alert and oriented, neatly dressed and groomed. Eye contact good. Motor activity appropriate. Speech within normal limits. Affect constricted, mood depressed, anxious. Thoughts linear, logical, no signs of hallucinations or delusions. Client Response/Progress/Benefit: []Client responded well to session, contributing positively and helping the group rehearse thought challenging. Client participated in the activity and shared it takes time to change thoughts they dont just go away. Client practiced in the moment coping skills by challenging a current cognitive distortion of that happened at work I look like an idiot and Im probably doing it wrong. Client reported this thought is labeling and disqualifying the positives. Client reframed her thought to Im doing fine, and people are not paying attention to what Im doing anyway. Client helped the group identify ways to combat negative thoughts reporting it is okay to have negative thoughts as long as you challenge them and dont blame yourself. Client also stated daily practice and rewarding herself when she successfully challenges thoughts as helpful strategies. Client appeared to benefit from gaining awareness of the distortions and learning strategies to challenge negative thoughts. Client seems to be progressing as evidenced by her report increased consistency with challenging negative thoughts and reduced isolation. Client to continue IOP as she continues to struggle with managing grief triggers.
--- NOTE | 2018-06-24 09:05 | BH.SGPN.GN ---
Behaviors/Verbalizations/Mental Status: []Client alert and oriented, dress casual good hygiene. Eye contact good. Motor activity appropriate. Speech within normal limits. Affect constricted, mood dysthymic, anxious. Thoughts linear, logical, no signs of hallucinations or delusions. Reviewed clients symptom tracker, no risk for suicidal ideation, plan, or intent as of 06/24/18. Client Response/Progress/Benefit: []Client responded well to session, open to positive comments and coping ideas given by peers. Client reports feeling anxious as client had intense depressive symptoms yesterday that she is coming out of. Client shared yesterday was a hard day for her, client left group and isolated on the couch. Client reported experiencing lack of motivation, anhedonia, and depersonalization. Client described the experience as out of body and terrible.Client shared she forced herself to help her mother clean and was then able to communicate with her mother that client needed to spend time with a close friend who has helped client process and cope with emotions in the past. Client reported her symptoms decreased after talking with her friend and listening to music. Client stated she was angry with herself for getting back to that point, but with group and therapist support and validation, client recognized there will be setbacks, but client made healthy decisions to cope with her depression which resulted in reduced duration of symptoms. Client appeared to benefit from gaining insight to progress and receiving supportive statements. Progress noted as shown by client's report of implementing healthy strategies instead of falling back to old patterns of coping. Client to continue IOP to prevent decompensation and promote maintenance.
--- NOTE | 2018-06-24 10:30 | BH.SGPN.GN ---
Behaviors/Verbalizations/Mental Status: [] Pt eye contact good, casually dressed, motor activity appropriate, speech normal rate and tone, mood euthymic, congruent affect, thoughts linear and intact, no evidence of delusions or hallucinations. Client Response/Progress/Benefit: []Pt contributed positively to discussion and listened attentively to others. Pt reported she would relate to the quote because fear has held her back many times from making a change in her life because she didn't want to fail. Pt identified fear of failure, mindreading, overgeneralization, negative thinking, and passive behavior as things that can be barriers to her progress. Pt seemed to benefit from increased self-awareness of barriers to making positive change. Narrative Note: []
--- NOTE | 2018-06-24 11:30 | BH.SGPN.GN ---
Behaviors/Verbalizations/Mental Status: [] Pt eye contact good, casually dressed, motor activity appropriate, speech normal rate and tone, mood euthymic, congruent affect, thoughts linear and intact, no evidence of delusions or hallucinations. Client Response/Progress/Benefit: []Pt contributed positively to discussion and listened attentively to peers. Pt reported her her 30 day plan she chose to focus on decreasing distorted thinking. Pt reported she tends to have a lot of distortions on a daily basis which pt reported recognizes increases her anxiety and impacts her self-esteem. Pt reported her first goal is to use the THINK technique to help her challenge distorted thoughts as she notices them. Pt shared her next goal is to go to the gym four times a week because it will improve her self confidence and give her opportunity to challenge distorted thoughts because being in public tends to trigger those kinds of thoughts. Pt reported another goal is to find 3 pieces of evidenced to prove the decision she has made is the right one. Pt shared her last goal in the plan is to limit using labeling words towards herself and others. Pt seemed to benefit from identifying small gaols that will help her reach longer term goal. Narrative Note: []
--- NOTE | 2018-06-24 14:22 | BH.MDN ---
Multi-Disciplinary Note - Note 60-min Individual Time Started:: 12:34 Date: 06/24/18 Purpose of session/treatment goals addressed:: The purpose of this session was to address clients current stressors and recent difficulties in symptom management, as well as review use of healthy coping strategies. Another purpose was to discuss Self-sabotage in relation to Client depression and identify strategies for breaking the cycle of self-sabotage. Eye Contact:: Good, Other - tearful during discussion on sx management Motor Activity:: Appropriate Appearance:: Casual Speech:: Appropriate Mood:: Dysthymic Affect:: Congruent Thoughts:: Linear, Logical, No evidence of hallucinations/delusions noted Staff Interventions:: Therapist used open-ended questions to explore clients current stressors, perceived setbacks in symptom management, and use of coping skills. Therapist used reflective listening and empathic responses to normalize Client areas of struggle and concerns. Provided psychoeducation regarding Self-Sabotage and worked with Client to identify potential warning signs and triggers as well as interventions to begin breaking the cycle of self-sabotage. Client Response:: Client receptive of meeting with this therapist and was willing to stay after scheduled group time to meet for session. Client discussed that in the last few days she has struggled with an influx of depressive thinking and negative emotions. Client shared that coming to group has helped her in altering her perspective in order to see that although she has been feeling down she has done well to prevent herself from returning to her previous unhealthy means of coping with negative emotions. CLient described that she had felt the worst I've felt in a year and a half yesterday morning and discussed specifically struggling with feeling disconnected from herself and her environment. She shared calling off work as she felt too overwhelmed to go but was then asked to help her mother with cleaning a friend's house. Client indicated feeling obligated to say yes to her mother despite knowing that she needed space. She did well to reflect back and identify that although initially agreeing to request Client was able to check-in with herself and realize that this was only negatively contributing to her current mood. 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 CLient noted that this had been difficult to do as she was tempted to go home and isolate instead. She appeared to connect with information discussed regarding urges to self-sabotage during times of high stress or when experiencing set backs. CLient and therapsit worked to identify her warning sign for self-sabotage behaviors of isolating and smoking and client indicated bored and sadness as biggest urges to return to old means of coping. She identified wanting to work more on improving self esteem levels as CLient indicated beliefs her negative self talk most strongly contributes to struggles in using skills learned. Client additionally connected with discussion regarding assessing what coping skills may best help with managing the emotion she is experiencing in the moment so that she is not trying to use a skill that may not help with what she is actually experiencing at that time. Risks/Concerns:: No identifiable risks or concerns at this time. Client denies suicidal ideation, plan, and intent as of 06/24/18. Client shared plans for her future she looks forward to and discussed motivations to continue working on managing mental heal sx, which demonstrates future orientation. Progress Toward Goals/Plan:: Client demonstrating progress towards treatment goals as evidenced by clients ongoing reports of reduced isolative behaviors, decreased anxiety, increased ability to manage depressive sx as they occur, and improved ability to communicate with her support. Client shared she continues to struggle with negative self-talk but feels like she has been improving in her awareness of when this occurs and is increasingly able to challenge the thoughts upon recognizing them. Client is showing observable improved mood and expresses progress in her ability to rationally think about her emotions and identify means for coping. Client to continue IOP to prevent decompensation and promote stability. Time Stopped:: 13:28
--- NOTE | 2018-06-25 16:04 | BH.MDN_ITS ---
Multi-Disciplinary Note - Note 60-min Individual Time Started:: 12:34 Date: 06/24/18 Purpose of session/treatment goals addressed:: The purpose of this session was to address client?s current stressors and recent difficulties in symptom management, as well as review use of healthy coping strategies. Another purpose was to discuss Self-sabotage in relation to Client depression and identify strategies for breaking the cycle of self-sabotage. Eye Contact:: Good, Other - tearful during discussion on sx management Motor Activity:: Appropriate Appearance:: Casual Speech:: Appropriate Mood:: Dysthymic Affect:: Congruent Thoughts:: Linear, Logical, No evidence of hallucinations/delusions noted Staff Interventions:: Therapist used open-ended questions to explore client?s current stressors, perceived setbacks in symptom management, and use of coping skills. Therapist used reflective listening and empathic responses to normalize Client areas of struggle and concerns. Provided psychoeducation regarding Self- Sabotage and worked with Client to identify potential warning signs and triggers as well as interventions to begin breaking the cycle of self-sabotage. Client Response:: Client receptive of meeting with this therapist and was willing to stay after scheduled group time to meet for session. Client discussed that in the last few days she has struggled with an influx of depressive thinking and negative emotions. Client shared that coming to group has helped her in altering her perspective in order to see that although she has been feeling down she has done well to prevent herself from returning to her previous unhealthy means of coping with negative emotions. CLient described that she had felt the worst I've felt in a year and a half yesterday morning and discussed specifically struggling with feeling disconnected from herself and her environment. She shared calling off work as she felt too overwhelmed to go but was then asked to help her mother with cleaning a friend's house. Client indicated feeling obligated to say yes to her mother despite knowing that she needed space. She did well to reflect back and identify that although initially agreeing to request Client was able to check-in with herself and realize that this was only negatively contributing to her current mood. 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 CLient noted that this had been difficult to do as she was tempted to go home and isolate instead. She appeared to connect with information discussed regarding urges to self-sabotage during times of high stress or when experiencing set backs. CLient and therapsit worked to identify her warning sign for self-sabotage behaviors of isolating and smoking and client indicated bored and sadness as biggest urges to return to old means of coping. She identified wanting to work more on improving self esteem levels as CLient indicated beliefs her negative self talk most strongly contributes to struggles in using skills learned. Client additionally connected with discussion regarding assessing what coping skills may best help with managing the emotion she is experiencing in the moment so that she is not trying to use a skill that may not help with what she is actually experiencing at that time. Risks/Concerns:: No identifiable risks or concerns at this time. Client denies suicidal ideation, plan, and intent as of 06/24/18. Client shared plans for her future she looks forward to and discussed motivations to continue working on managing mental heal sx, which demonstrates future orientation. Progress Toward Goals/Plan:: Client demonstrating progress towards treatment goals as evidenced by client?s ongoing reports of reduced isolative behaviors, decreased anxiety, increased ability to manage depressive sx as they occur, and improved ability to communicate with her support. Client shared she continues to struggle with negative self-talk but feels like she has been improving in her awareness of when this occurs and is increasingly able to challenge the thoughts upon recognizing them. Client is showing observable improved mood and expresses progress in her ability to rationally think about her emotions and identify means for coping. Client to continue IOP to prevent decompensation and promote stability. Time Stopped:: 13:28
--- NOTE | 2018-06-29 09:05 | BH.SGPN.GN ---
Behaviors/Verbalizations/Mental Status: [Client maintained good eye contact - tearful during reflection, casually dressed, motor activity restless as client fidgeting in seat and with cane as well as left room momentarily, speech normal rate and tone, mood euthymic,anxious expressed as nervous hopeful, affect congruent, thoughts linear and logical, no evidence of delusions or hallucinations. Therapist reviewed clients symptom tracker to assess for intensity of mental health symptoms and identify risk for suicide. No signs of suicidal ideation, plan, or intent to date.] Client Response/Progress/Benefit: [Responded well to session, engaged throughout discussion portion and willing to reflect with group. Discussed feeling positive today looking forward to her cousins as this week is her twin uncles birthday and the family always gets together multiple times. She shared feeling both excited and nervous about this as she has complicated relationships with many of the members of her father's side of the family. Client went on to discuss ongoing frustrations with her dad and his inconsistent engagement in her life. Shared confronting him about it this past Friday but felt as though her concerns had been brushed aside. Client benefited from processing this with the group and working with fellow participants on identifying very strategies in which she could re-approach this with her father. Client is showing significant progress in her ability to check in with herself at various points throughout the day and identify how her emotions and thoughts may be impacting overall mental health as well as implement healthy coping skills during times of increased negativity or stress. She is recommended continued IOP treatment in order to prevent decompensation, maintain stability, and continue consistent application of skills prior to an upcoming stressful family event for client this week.] Narrative Note: []
--- NOTE | 2018-06-29 10:35 | BH.SGPN.GN ---
Behaviors/Verbalizations/Mental Status: []Client alert and oriented, neatly dressed and groomed. Eye contact good. Motor activity appropriate. Speech within normal limits. Affect congruent, mood euthymic. Thoughts linear, logical, no signs of hallucinations or delusions. Client Response/Progress/Benefit: []Client responded well to session, participating in activity and discussion. Client appeared to connect to the quote sharing, if you keep thinking negative thoughts it will keep you thinking things are impossible. Client stated there are have been many times in life where client viewed something as impossible and it turned out not being the case. Client shared overcoming her sisters was something client once thought she could never get past, but now sees she can. Client reported having an impossible mindset keeps people stuck and can lead to increased anxiety and depression. Client participated in the activity, providing feedback and supportive statements. Client shared to overcome an impossible situation the group had to have good communication and learn to let go of expectations. Client appeared to benefit from recognizing the consequences of viewing situations as impossible and practicing overcoming an impossible situation. Client progressing as shown by her report of improved mood and reduced isolation, but can continue to benefit from IOP to maintain mood stability.
--- NOTE | 2018-06-29 11:32 | BH.SGPN.GN ---
Behaviors/Verbalizations/Mental Status: []Client alert and oriented, neatly dressed and groomed. Eye contact good. Motor activity appropriate. Speech within normal limits. Affect congruent, mood euthymic. Thoughts linear, logical, no signs of hallucinations or delusions. Client Response/Progress/Benefit: []Client responded well to session, active participant. Client appeared to connect with growth versus fixed mindset providing examples of thoughts for each. Client helped the group process the benefits of growth mindset and identified strategies to obtain a grow mindset such as thinking not yet. Client identified talking to my mom about my feelings as something used to view as impossible, but now client has emotional conversations with her mom and sets boundaries. Client stated when she looks back at this accomplishment it makes her feel confident that she can overcome impossible situations in the future. Client able to identify internal and external resources that can help client overcome future barriers such as self-compassion and using positive supports. Client appeared to benefit from learning about growth mindset and increasing awareness of internal and external resources that may help client overcome barriers. Client has progressed as evidenced by her report of improved mood and use of coping skills, but client can continue to benefit from IOP to promote mood stability and maintenance of healthy coping skills.
--- NOTE | 2018-06-30 09:05 | BH.SGPN.GN ---
Behaviors/Verbalizations/Mental Status: [Client alert and orient x3, maintained good eye contact, casually dressed, motor activity WNL, speech normal rate and tone, mood euthymic and positive, expressed as happy, affect congruent - bright, thoughts linear and logical, no evidence of delusions or hallucinations. Therapist reviewed clients symptom tracker to assess for intensity of mental health symptoms and identify risk for suicide. No signs of suicidal ideation, plan, or intent to date.] Client Response/Progress/Benefit: [Client responded well to session and actively engaged with the group. She discussed that for the first time since beginning the IOP program her emotion for the day would be described as happy. Client shared that had spent the night with her cousins which had been both relaxing and cathartic. She indicated being able to effectively process her mixed emotions surrounding her relationship with her father with a group of supports who truly understand. Client benefitted from reflecting upon areas of progress such as her increased ability as well as identifying ways to manage her anxiety during an upcoming family reunion. Recommended continued IOP tx to maintain stability and continue to make progress in managing depressive and anxious symptoms and thinking patterns.] Narrative Note: []
--- NOTE | 2018-07-15 11:22 | BH.MTP_ITS ---
Treatment Plan Review Date of Admission:: 05/13/18 Date of Treatment Plan Review:: 06/09/18 Admitting Diagnoses:: Major depressive disorder recurrent severe F 33.2. Anxiety unspecified. PTSD. Cannabis use Current Diagnoses:: Major depressive disorder recurrent severe F 33.2. Anxiety unspecified. PTSD. Cannabis use - in remission Patient's Response to Treatment:: Client appears and reports to be to have a positive response to treatment since beginning the IOP program. This is evidenced by Client overall consistent attendance and participation in both the group and individual setting. Client has had not issues with tardiness or called /no shows and is an actively engaged participant, providing both input and positive feedback to the group as well as willingly participating in the activity portions of session. Client reports beginning to see improvements in her ability to apply treatment materials discussed to her own daily life which she believes has contributed to an increased ability to maintain sobriety, better manage symptoms of depression and anxiety, as well as decreased isolative behaviors. Client reports maintaining marijuana sobriety since beginning IOP program. CLient has been open to completing mental health challenges provided in either the group or individual sessions. She has improved with her ability to identify and challenge distorted thinking patterns via personalization and catastrophizing as well as decrease use of self- deprecating talk. Client has not been prescribed any medications for psychiatric purposes and therefore has had no issues with compliance. She is receptive to internalizing and applying coping skills learned in group and individual sessions, but self-reports increased urges to use avoidance and revert to past unhealthy behaviors, as well as difficulties in communicating with supports and setting boundaries with unhealthy friends and family which could impact maintenance of progress. Client has made progress through reduction of depressive and anxious symptoms, increasing self-awareness and knowledge of her own mental health symptoms and triggers, processing how thoughts and feelings are related, and reduction of isolation as a means of coping as evidenced by reduced DSM-5 cross-cutting scores. Status of Current Problems and Symptoms: Client reports experiencing an overall reduction in symptoms of anxiety, ruminative thoughts and overwhelming stress, and depression as well as increased ability to maintain sobriety from marijuana since beginning the IOP program. She continues to report ongoing mild symptoms of depression, anxiety, and ?numbness? or dissociative type feelings at times however has noted increased ability to identify and use effective interventions more quickly. Client shared finding a work-life balance has been difficult as she has taken on two additional jobs since beginning IOP program and fears she will become overwhelmed. Client currently working on improving healthy balance. She additionally struggles with ongoing negative or distorted thinking patterns which impact Client self-esteem and often result in avoidance, disengagement, or failure to maintain self-care.. Client also reports ongoing family stressors and difficulty setting boundaries with these individuals which has fears may become a potential trauma trigger. Client reports concerns of failing or reverting to unhealthy means of coping such as smoking marijuana, avoidance, and disengagement. Client reports urges to engage in risky sexual behaviors, but of reduced intensity. Client continues to report she has been trying to engage in at least one activity outdoors daily outside of work and has been trying to improve communication with family and other healthy supports, but continues to struggle with this at times. Problem #1 Problem Name:: Client will decrease depressive symptoms, isolation, and negative thoughts Status of Goals:: Client has made significant progress in accomplishing this treatment goal, however continues to have areas of progress to be made. Client is able to successfully identify 2-3 warning signs and triggers for depression and common negative self-talk messages used. She reports the internal strategies used to better manage these symptoms and replace self-deprecation include positive affirmations, mindfulness via spending time outdoors or using intentionality to complete a task, alternative positive thought replacement, communicating and implementing healthy boundaries, and setting small daily goals to prevent isolation and continue to promote healthy symptom management. Although Client does well to identify negative thought patterns and behaviors maintaining depression, she struggles with believing the affirmational statements or being able to consistently identify ways of reframing negative or distorted thinking and reports urges to ?shut down?, isolate, or avoid. Client has shown progress with increasing positivity and reaching out to supports, decreasing isolative or substance use behaviors, and has reduced depressive symptoms as evidenced by reduced DSM-5 cross-cutting scores for depression. At admission, client scored 5 out of 8 for depression and at review, client scored 3 out of 8. Team Recommendations:: Client recommended continued IOP treatment in order to improve progress on current goals. She would benefit from working on this treatment goal so as to continue improving ability to challenge negative thoughts, and improve use of healthy internal coping skills when faced with negative emotions. Client would also benefit from increasing consistent application of externat coping via communicating with supports and engaging in healthy socialization. Client and therapist currently working on challenging negative core beliefs and improving client ability to set healthy boundaries and improve awareness of warning signs for trauma triggers to increase ability to manage triggers in healthy means and to prevent setbacks. Therapist also hoping to engage client's mother in the treatment process. Problem #2 Problem Name:: Stabilize anxiety, increase ability to function and reduce rumination Status of Goals:: Client has accomplished part of treatment goal as she can identify how previous and current tendency to take on excess responsibilities as well as use of predicting the future or catastrophizing negatively impact client anxiety levels. Client additionally reports increased understanding of the relationship between her trauma history and anxiety. Client able to identify at least 2 trauma or anxiety triggers and 2 ruminating thought patterns impacting anxiety. She reports trying to use thought challenging and healthy distraction to cope; however reports finding distraction not to be helpful with restlessness. Client appears to struggle with knowing what types of distraction may be helpful in different situations and continues to reports difficulties with not overwhelming herself as she reports taking on two additional jobs since beginning IOP program which has been stressful as well as experiencing guilt if she does not allow for her supports to discuss their worries with client, despite this increasing client anxiety at times. Client has shown progress with reducing anxiety, but continues to report mild anxiety symptoms such as feeling worried, difficulties managing trauma triggers resulting in panic, and avoiding communicating with supports. At admission, client scored 11 out of 12 for anxiety of the DSM-5 cross-cutting symptom measure, and at review client scored 4 out of 12. Client can continue to increase self-care and distress management skills. Team Recommendations:: Client recommended to continue working on treatment goals in order to maintain as well as continue to gain progress regarding awareness of ruminating thought patterns and trauma triggers, application healthy coping skills, and communication with support. Client reports currently feeling able to maintain her current work-life balance but is fearful of experiencing balance in the future as she believes she may have overloaded herself, which increases stress. Therapist attempted to call client's outpatient counselor, to discuss client's progress and updates however was unable to make contact at this time.
== END 2018-06-30 23:59 ==
LOC: BHIOP 09:00
PROVIDERS: Visit Provider Psychiatry & Neurology Psychiatry
DX: F33.2 Major depressive disorder, recurrent severe without psychotic features (principal); F41.9 Anxiety disorder, unspecified; F43.10 Post-traumatic stress disorder, unspecified; F12.20 Cannabis dependence, uncomplicated; F17.210 Nicotine dependence, cigarettes, uncomplicated
CPT/HCPCS: H0035; 90832; 90834; 90837; 90853

== ENCOUNTER 2018-07-01 09:00 | Outpatient (RCR) | payer OTHER, SELFPAY ==
--- NOTE | 2018-06-30 10:25 | BH.SGPN.GN ---
Behaviors/Verbalizations/Mental Status: [] Pt eye contact good, casually dressed, motor activity appropriate, speech normal rate and tone, mood euthymic, bright affect, thoughts linear and intact, no evidence of delusions or hallucinations. Client Response/Progress/Benefit: [] Client active participant as evidenced by client contributing positively to discussion and listened attentively to others. Client reported in the past she would attempt to use sleep as her way of dealing with her problems and coping. Client shared over time she realized sleeping did not help her problems only made the situation worse. Client shared she has been able to generalizing utilize healthy coping on a more consistent basis which has helped her feel more happy and accomplished. Client connected with others on the challenges and barriers to generalizing healthy coping including comfort zone, negative thoughts, and no motivation as common barriers. Client seemed to benefit from identifying the progress she has made compared to when she first started the program. Narrative Note: []
--- NOTE | 2018-07-01 09:05 | BH.SGPN.GN ---
Behaviors/Verbalizations/Mental Status: []Client alert and oriented, neatly dressed and groomed. Eye contact good. Motor activity appropriate. Speech within normal limits. Affect full, mood euthymic, anxious. Thoughts linear, logical, no signs of hallucinations or delusions. Reviewed clients symptom tracker, no risk for suicidal ideation, plan, or intent as of 07/01/18. Client Response/Progress/Benefit: []Client responded well to session, reacted well to a comment made by a peer on client's longer check in. Client reports feeling a smidge of anxiety, but proud today after setting a boundary with a long-time friend last night. Client shared she knew she would eventually need to set the boundary, but had been dreading it for some time. Client stated she decided to end the friend as client reports belief it was toxic and not beneficial to her mental health. Client reported I was happy and sad because we had been friends for a long time. Client shared because she felt sad client almost isolated, but talked to a support, looked at funny pictures, and pampered herself instead which helped client feel better. Client recognized setting this boundary as big for me as client has reported difficulty with standing up for her needs in the past. The group provided praise and positive feedback to client. Client appeared to benefit from supportive statements made by peers. Client can benefit from another week of IOP to maintain gains and reinforce healthy coping skills.
--- NOTE | 2018-07-01 10:18 | BH.SGPN.GN ---
Behaviors/Verbalizations/Mental Status: [Client alert and orient x3, maintained consistent eye contact, casually and appropriately dressed, motor activity WNL, speech normal rate and tone, mood euthymic and positive, congruent affect, thoughts linear and logical, no evidence of delusions or hallucinations.] Client Response/Progress/Benefit: [Client receptive of session and did well to engage with both the activity and discussion portions of the session. She worked the group on identifying the various options they have in deciding how they manage life's pitfalls. Client shared that you can either avoid them or choose to face them head on. She benefitted from reflecting upon her past use of avoidance and isolation when faced with a pitfall and the negative effects this had on her mental health. Client displaying progress in her ability to make connections between the difficulties in avoiding the pitfalls in the group activity with avoiding pitfalls in dx life. CLient reflected that not communicating with supports provents them from being able to help as well as that although awareness of pitfalls oliva be scary it is necessary to begin holding ourselves accountable for what we do about them. CLient recommended continued IOP tc to maintain current gains, increase consistencey of application of skills, and provide support in managing mental health sx.] Narrative Note: []
--- NOTE | 2018-07-01 11:19 | BH.SGPN.GN ---
Behaviors/Verbalizations/Mental Status: [Client alert and orient x3, maintained consistent eye contact, casually and appropriately dressed, motor activity WNL, speech normal rate and tone, mood euthymic - reflective of progress made, congruent affect, thoughts linear and logical, no evidence of delusions or hallucinations.] Client Response/Progress/Benefit: [Client responded positively to session, remained engaged throughout. She indicated connecting well with the content discussed regarding personal pitfalls and why we may struggle to avoid falling into them. Client indicated that for her she struggled to recognize the warning signs prior to coming to IOP tx, but feels that since attending the program she has gained important insights and awareness of her own mental health warning signs and triggers. CLient shared that some of her own personal pitfalls include isolation, avoidance, and taking on to much. CLient benefitted from reflecting upon progress since beginning tx as well as brainstorming strategies for managing and preventing falling into pitfalls. She identified that maintaining effective communication with supports, positive self talk, and setting small goals for herself would be most helpful to avoid pitfalls. CLient recommended continued IOP tx to prevent decompensation and assist Client in consistent application of symptom management skills. ] Narrative Note: []
--- NOTE | 2018-07-06 09:05 | BH.SGPN.GN ---
Behaviors/Verbalizations/Mental Status: []Client alert and oriented, neatly dressed and groomed. Eye contact good. Motor activity slowed. Speech within normal limits. Affect constricted, mood disconnected dysthymic, anxious. Thoughts linear, logical, no signs of hallucinations or delusions. Reviewed clients symptom tracker, no risk for suicidal ideation, plan, or intent as of 07/06/18. Client Response/Progress/Benefit: []Client responded well to session, seemed less engaged than usual, but still providing supportive statements. Client reports feeling anxious and disconnected today which client shared belief is due to being around a trauma trigger and being busy the past week. Client shared her disconnected feeling started yesterday. Client had a family cookout this weekend and no crazy drama happened but client was around toxic family members. Client reported she took a walk at one point during the cookout to prevent herself from feeling overwhelmed. Client stated she has been improving with sticking up for herself and she confronted her dad about a family issue. Client shared it was kind of upsetting because he didn't support me, but I felt glad I stood up for myself. Client reported she cleaned her room yesterday which somewhat helped client feel more connected, but then spent time in her bed. Client identifies her bed as past unhealthy coping skill and reports plan to use other coping skills to avoid her bed and improve her mood. Client identified grounding strategies to use today including 5 senses, walking, and self-talk. Client seemed to benefit from gaining coping strategies and processing her feelings with the group. Progress noted as client reports using healthy coping strategies and has not smoked marijuana in 2 months, but continues to struggle with consistency when coping with trauma triggers.
--- NOTE | 2018-07-06 10:25 | BH.SGPN.GN ---
Behaviors/Verbalizations/Mental Status: [] Pt eye contact good, casually dressed, motor activity appropriate, speech normal rate and tone, mood dysthymic and anxious, constricted affect, thoughts linear and intact, no evidence of delusions or hallucinations. Client Response/Progress/Benefit: Client contributed to discussion at times, less engaged in group discussion was compared to previous group sessions. Client appeared to be attentive to others and took notes throughout group session. Client reported initially she most often was a passive communicator because she did not want to cause conflict or upset anybody. However client reported she can see how being passive did not help her situation and often led to her being walked over. Client shared at times she will continue to be passive-aggressive because it feels good to get her emotions out but recognizes it is not most effective for him to communicate. Client reported she is attempting to be more assertive with her thoughts and feelings but continues to struggle due to wanting to avoid conflict. Client seemed to benefit from increased awareness of the 4 styles of communication as well as learning about the benefits and cons to each staff communication.
--- NOTE | 2018-07-06 11:25 | BH.SGPN.GN ---
Behaviors/Verbalizations/Mental Status: [] Pt eye contact good, casually dressed, motor activity appropriate, speech normal rate and tone, mood anxious, congruent affect, thoughts linear and intact, no evidence of delusions or hallucinations. Client Response/Progress/Benefit: Patient shared her thoughts and feelings throughout the session and worked cooperatively with peers during activity. When processing activity patient reported it can be rather challenging to be specific and clear with what one is trying to communicate but recognizes the importance of doing so to her best ability or the message you are trying to convey can be misinterpreted. Client connected with how poor communication can negatively impact mental health because won't get the support or help needed if not communicating directly. Client reported her goal for the week is to work on her nighttime routine with focus on relaxation versus watching tv until bed. Client seemed to benefit from rehearsing using effective communication skills. Client to continue IOP to maintain gains and prevent decompensation.
--- NOTE | 2018-07-07 09:01 | BH.AFTERPLAN ---
Aftercare Plan - Demographics Treatment End Date:: 07/07/18 Psychiatrist:: Lesly Solares Psychiatrist Office #:: [phone] [facility] Therapist:: Charo Benitez Therapist Phone #:: [phone] - Medications Home Medications: Home Medications Levonorgestrel [Mirena] 1 each IY X1 06/05/18 - Plan Details Progress/Aftercare Plan Details:: Since beginning the [facility] tx program, Altagracia has displayed significant levels of progress in her ability to identify and manage her mental health symptoms, specifically in regards to anxiety and depression. Altagracia has additionally been observed by fellow participants and staff to continue to put strong efforts in her consistent application of the treatment skills learned via healthy coping skills, self care strategies, and implementation of regular communication with supports and boundary setting. She appears to be supports much more self confident and self aware young woman. Altagracia is a prime example of how remembering to practice patience, setting small daily goals, and using positive self talk can aide in improving overall mental health and wellness. Throughout the duration of the program she was actively engaged in both the group and individual treatment setting, provided helpful feedback and encouragement, as well as maintained consistent attendance. She indicates identifying decreased isolation, improved levels of motivation, increased ability to challenge negative thoughts and cognitive distortions,as well as stronger levels of confidence and willingness to set boundaries, challenge others expectations, and advocate for her own needs. Altagracia is encouraged to continue to work on setting and maintaining healthy boundaries, ensuring she is not overwhelming herself and maintaining balance, as well as continuing to use positive self-talk. Altagracia is to continue working on the individual outpatient level with her Counselor, Lore Zhang, at [facility]. Good [place] Altagracia! Strategies for Success:: 1. Continue to check-in with yourself and pay attention to your needs! Ask yourself how you are feeling and why you might be feeling that way - warning signs are there for a reason ---to remind you to take action! 2. Celebrate your wins and remind yourself of your own accomplishments! Telling yourself that you're awesome does not make you selfish! 3. BALANCE - pay attention to if you are overwhelming yourself or taking on other people's problems and emotions. 4. Routine! Follow the self-care and hygiene routines you have set up for yourself! 5. Assert your boundaries and advocate for what you need --- even if it means upsetting someone else. 6. Communicate, Communicate, Communicate! - You're supports can't help or encourage you if they don't know what's going on. 7. Drink water & be with someone or take a walk outside if you catch yourself folling into negative mindsets or being distant. 8. Continue going to see your counselor. - Appointments Appointments/Referrals to Other Services:: Client is recommended continued individual therapy at [facility] with her counselor Lore Zhang. Client to establish next appointment on this date. Client additionally encouraged to get involved in social activities such as yoga or an extra curricular sporting activity.
--- NOTE | 2018-07-07 09:04 | BH.SGPN.GN ---
Behaviors/Verbalizations/Mental Status: [Client alert and oriented, neatly dressed and groomed. Eye contact good. Motor activity appropriate. Speech normal rate and tone. Affect congruent, mood anxious, euthymic. Thoughts linear, logical, no signs of hallucinations or delusions. Reviewed client?s symptom tracker, no risk for suicidal ideation, plan, or intent as of 07/07/18.] Client Response/Progress/Benefit: [Client receptive of session, engaged throughout, and provided supportive feedback. Indicated that her emotion for the day is anxious but optimistic and excited as she discussed this being her last day in the IOP program. Client reflected that she is nervous about not having the support of the program but knows she has come a long way since admitting to program and is in a much healthier place. Client benefitted from reviewing areas of progress and indicated that her self-confidence has been the most notable growth. Client noted additionally improving her ability to set healthy boundaries and assert her needs with her supports, as well as be okay in being alone. Client has made much progress since beginning tx and set to discharge from program on this date.] Narrative Note: []
--- NOTE | 2018-07-07 10:23 | BH.SGPN.GN ---
Behaviors/Verbalizations/Mental Status: []Client alert and oriented, neatly dressed and groomed. Eye contact good. Motor activity appropriate. Speech within normal limits. Affect congruent, mood euthymic, anxious. Thoughts linear, logical, no signs of hallucinations or delusions. Client Response/Progress/Benefit: []Client responded well to session, last day in IOP reflecting on progress. Client connected with the quote sharing Lila had to accept the hard things so I stop re-reading the past. Client shared that depression, rumination, and lack of acceptance can keep people stuck from obtaining mental wellness. Client stated change is important because it helps one take steps to improve their mood or situation. Client identified personal changes she would like to make this week to improve her mental health such as continue with daily routine, communicating needs with her mom, and acknowledging progress. Client unable to identify barriers as she left group early. Client appeared to benefit from identifying goals for the week and reflecting on gains. Client to discharge IOP today.
--- NOTE | 2018-07-07 11:57 | BH.IGGP_ITS ---
Aftercare Plan - Demographics Treatment End Date:: 07/07/18 Psychiatrist:: Lesly Solares Psychiatrist Office #:: [phone] [facility] Therapist:: Charo Benitez Therapist Phone #:: [phone] - Medications Home Medications: Home Medications Levonorgestrel [Mirena] 1 each IY X1 06/05/18 - Plan Details Progress/Aftercare Plan Details:: Since beginning the [facility] tx program, Altagracia has displayed significant levels of progress in her ability to identify and manage her mental health symptoms, specifically in regards to anxiety and depression. Altagracia has additionally been observed by fellow participants and staff to continue to put strong efforts in her consistent application of the treatment skills learned via healthy coping skills, self care strategies, and implementation of regular communication with supports and boundary setting. She appears to be supports much more self confident and self aware young woman. Altagracia is a prime example of how remembering to practice patience, setting small daily goals, and using positive self talk can aide in improving overall mental health and wellness. Throughout the duration of the program she was actively engaged in both the group and individual treatment setting, provided helpful feedback and encouragement, as well as maintained consistent attendance. She indicates identifying decreased isolation, improved levels of motivation, increased ability to challenge negative thoughts and cognitive distortions,as well as stronger levels of confidence and willingness to set boundaries, challenge others expectations, and advocate for her own needs. Altagracia is encouraged to continue to work on setting and maintaining healthy boundaries, ensuring she is not overwhelming herself and maintaining balance, as well as continuing to use positive self-talk. Altagracia is to continue working on the individual outpatient level with her Counselor, Lore Zhang, at [facility]. Good [place] Altagracia! Strategies for Success:: 1. Continue to check-in with yourself and pay attention to your needs! Ask yourself how you are feeling and why you might be feeling that way - warning signs are there for a reason ---to remind you to take action! 2. Celebrate your wins and remind yourself of your own accomplishments! Telling yourself that you're awesome does not make you selfish ! 3. BALANCE - pay attention to if you are overwhelming yourself or taking on other people's problems and emotions. 4. Routine! Follow the self-care and hygiene routines you have set up for yourself! 5. Assert your boundaries and advocate for what you need --- even if it means upsetting someone else. 6. Communicate, Communicate, Communicate! - You're supports can't help or encourage you if they don't know what's going on. 7. Drink water & be with someone or take a walk outside if you catch yourself folling into negative mindsets or being distant. 8. Continue going to see your counselor. - Appointments Appointments/Referrals to Other Services:: Client is recommended continued individual therapy at [facility] with her counselor Lore Zhang. Client to establish next appointment on this date. Client additionally encouraged to get involved in social activities such as yoga or an extra curricular sporting activity.
--- NOTE | 2018-07-07 14:33 | BH.MDN ---
Multi-Disciplinary Note - Note 60-min Individual Time Started:: 11:03 Date: 07/07/18 Purpose of session/treatment goals addressed:: The purpose of this session was to work with Client on identifying and discussing treatment progress and areas of continued growth, review strategies that will promote ongoing symptom management and use of health boundaries and balance, as well as discuss aftercare and discharge recommendations. Another goal was to aide Client in processing several recent triggering events and how client had been able to successfully cope with each. Eye Contact:: Good, Other - tearful throughout discussion Motor Activity:: Appropriate Appearance:: Casual Speech:: Appropriate Affect:: Full Thoughts:: Linear, Logical, No evidence of hallucinations/delusions noted Staff Interventions:: Therapist used open-ended questions to acquire client's thoughts and perspective on personal progress and symptom management. Therapist worked with client to review strategies for success, potential warning signs and barriers, and motivations to maintain gains and prevent setbacks. Used strengths-perspective to empower client on the goals client accomplished and reviewed progress regarding decline in DSM Depression Cross-cutting score. Therapist helped client process recent triggers and commended client use of health means of coping. Therapist discussed Client aftercare plan and gave client a quote collage for closure, as well as had client complete the IOP surveys. Client Response:: Client responded well to session, engaged actively in discussion with therapist. Client shared she had been glad that this date ended up being her last day in the program as it is the anniversary of her sisters and she is grateful to have a positive to focus on. She went on to describe that she knows she has truly made progress in the IOP program based on her improved ability to cope with the significance of this date as well as a difficult interaction with her father and uncle over the weekend. Client shared that she has isolated and become increasingly irritable the weeks leading up to her sisters anniversary in previous years but is now actively reaching out to her supports and processing her emotions. Client went on to discuss attributing this to having better insight into her warning signs and triggers, as well as more confidence in herself and her ability to advocate for her own need. She went on to discuss additional areas of progress she has been able to recognize in herself since beginning the IOP tx program. Client expressed seeing improvement in her ability to manage symptoms of anxiety by reducing how much she takes on, setting and maintaining healthier boundaries with her parents and friends she has identified, as well as challenging her ruminating and distorted thinking patterns. Client has improved in her ability to deal with distress and difficult emotions in healthy ways and described no longer wanting to avoid or numb her emotions with marijuana. 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 Client stated she continues to have worries and stress about family relationships, but client reported belief she can manage those things better now that she has the skills to do so. Client identified strategies to promote gains and prevent falling back into old patterns of behavior. She identified strategies to include: maintaining a regular daily routine and morning hygiene checklist, regularly checking in with herself and paying attention to warning signs, having a plan to return to the present moment when feeling emotionally disconnected by drinking water and doing something social, not resting in her bedroom to prevent isolation and avoidance behaviors, maintaining boundaries and advocating for herself, talking to supports, and celebrating successes. Client to follow up with outpatient provider, Lore Zhang, to continue individual outpatient counseling services. Risks/Concerns:: No risks or concerns to document at this time. Client denies suicidal ideation, plan, and intent as of 07/07/18. Client is future oriented as evidenced by plans to go to work following group and then celebrate her successful discharge from [facility] program with Client friends and family. Progress Toward Goals/Plan:: Client made progress towards treatment goals as evidenced by her reduced DSM-5 cross-cutting measure score for anxiety and depression from an overall score of 39 at admission, 21 at midpoint review, and 10 at time of discharge. Client indicates increased insight and self-confidence. At discharge client reported reduced stress and irritability, depression reduced isolation, and refraining from smoking. Client also improved functioning as evidenced by her report of no longer isolating, increased socialization, and regularly working. Client to discharge from [facility] and follow up with [facility] for outpatient counseling. Time Stopped:: 12:07
--- NOTE | 2018-07-07 17:24 | BH.MDN_ITS ---
Multi-Disciplinary Note - Note 60-min Individual Time Started:: 11:03 Date: 07/07/18 Purpose of session/treatment goals addressed:: The purpose of this session was to work with Client on identifying and discussing treatment progress and areas of continued growth, review strategies that will promote ongoing symptom management and use of health boundaries and balance, as well as discuss aftercare and discharge recommendations. Another goal was to aide Client in processing several recent triggering events and how client had been able to successfully cope with each. Eye Contact:: Good, Other - tearful throughout discussion Motor Activity:: Appropriate Appearance:: Casual Speech:: Appropriate Affect:: Full Thoughts:: Linear, Logical, No evidence of hallucinations/delusions noted Staff Interventions:: Therapist used open-ended questions to acquire client's thoughts and perspective on personal progress and symptom management. Therapist worked with client to review strategies for success, potential warning signs and barriers, and motivations to maintain gains and prevent setbacks. Used strengths-perspective to empower client on the goals client accomplished and reviewed progress regarding decline in DSM Depression Cross-cutting score. Therapist helped client process recent triggers and commended client use of health means of coping. Therapist discussed Client aftercare plan and gave client a quote collage for closure, as well as had client complete the IOP surveys. Client Response:: Client responded well to session, engaged actively in discussion with therapist. Client shared she had been glad that this date ended up being her last day in the program as it is the anniversary of her sister?s and she is grateful to have a positive to focus on. She went on to describe that she knows she has truly made progress in the IOP program based on her improved ability to cope with the significance of this date as well as a difficult interaction with her father and uncle over the weekend. Client shared that she has isolated and become increasingly irritable the weeks leading up to her sister?s anniversary in previous years but is now actively reaching out to her supports and processing her emotions. Client went on to discuss attributing this to having better insight into her warning signs and triggers, as well as more confidence in herself and her ability to advocate for her own need. She went on to discuss additional areas of progress she has been able to recognize in herself since beginning the IOP tx program. Client expressed seeing improvement in her ability to manage symptoms of anxiety by reducing how much she takes on, setting and maintaining healthier boundaries with her parents and friends she has identified, as well as challenging her ruminating and distorted thinking patterns. Client has improved in her ability to deal with distress and difficult emotions in healthy ways and described no longer wanting to avoid or numb her emotions with marijuana. 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 Client stated she continues to have worries and stress about family relationships, but client reported belief she can manage those things better now that she has the skills to do so. Client identified strategies to promote gains and prevent falling back into old patterns of behavior. She identified strategies to include: maintaining a regular daily routine and morning hygiene checklist, regularly checking in with herself and paying attention to warning signs, having a plan to return to the present moment when feeling emotionally disconnected by drinking water and doing something social, not resting in her bedroom to prevent isolation and avoidance behaviors, maintaining boundaries and advocating for herself, talking to supports, and celebrating successes. Client to follow up with outpatient provider, Lore Zhang, to continue individual outpatient counseling services. Risks/Concerns:: No risks or concerns to document at this time. Client denies suicidal ideation, plan, and intent as of 07/07/18. Client is future oriented as evidenced by plans to go to work following group and then celebrate her successful discharge from [facility] program with Client friends and family. Progress Toward Goals/Plan:: Client made progress towards treatment goals as evidenced by her reduced DSM-5 cross-cutting measure score for anxiety and depression from an overall score of 39 at admission, 21 at midpoint review, and 10 at time of discharge. Client indicates increased insight and self- confidence. At discharge client reported reduced stress and irritability, depression reduced isolation, and refraining from smoking. Client also improved functioning as evidenced by her report of no longer isolating, increased socialization, and regularly working. Client to discharge from [facility] and follow up with [facility] for outpatient counseling. Time Stopped:: 12:07
--- NOTE | 2018-07-07 17:25 | BH.DS ---
Discharge Summary - Demographics Date of Admission:: 05/13/18 Discharge Date: 07/07/18 Presenting Problems at Admission:: Patient is a 17-year-old single female who presents to the behavioral medicine [facility] with a long-standing history of depression and anxiety. Client has a hx of PTSD. Client reports symptoms have been getting increasingly worse in the last few months which has resulted in increased isolation and use of cannabis as a means to numb. Client indicates agreeing to seek mental health treatment following an argument with her mother that resulted in client almost being kicked out of the house. CLient identifies a hx of multiple losses and stressors which she feels has contributed to her symptoms. She states that current sx include decreased energy, low motivation, [place], increased sleep and isolation, avoidance, passive thoughts of , ruminating anxiety and negative self talk impacting her ability to function at baseline. Discharge Diagnoses:: Major depressive disorder recurrent severe F 33.2. Anxiety unspecified. PTSD Reason for Discharge:: Client has successfully met treatment goals and no longer meets requirements for [facility] level of care. Client displayed significant decrease in symptoms of depression and anxiety as evidenced by a reduction in DSM Cross-Cutting Measurement score of 39 upon admission to 10 on discharge date. Client is planning to follow-up with on-going outpatient individual counseling services through [facility]. - Treatment Progress During Treatment & Response: Since beginning the [facility] tx program, Client has displayed significant levels of progress in her ability to identify and manage her mental health symptoms, specifically in regard to anxiety and depression and reports refraining from smoking for the duration of program admission. 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 Client stated she continues to have worries and stress about family relationships, but client reported belief she can manage those things better now that she has the skills to do so. She has been observed by fellow participants and staff as placing strong value in consistent application of the treatment skills learned via healthy coping skills, self-care strategies, and implementation of regular communication with supports and boundary setting. Client reports feeling she is much more self confident and self aware which she believes has aided in her ability to continue making progress in treatment and better manage mh sx. Client is regularly setting small daily goals, and using positive self-talk as well as completing regular check-ins with herself throughout the day. Throughout the duration of the program she was actively engaged in both the group and individual treatment setting, provided helpful feedback and encouragement, as well as maintained consistent attendance. Client indicates identifying decreased isolation, improved levels of motivation, increased ability to challenge negative thoughts and cognitive distortions, as well as stronger levels of confidence and willingness to set boundaries, challenge others expectations, and advocate for her own needs. Issues Still to be Addressed:: Client continues to have some trouble in use of self-deprecating talk, use of catastrophizing, or mindreading, and urges to fall back into unhealthy smoking behaviors when feeling overwhelmed, bored or lonely. She is encouraged to continue to work on setting and maintaining healthy boundaries, ensuring she is not overwhelming herself and maintaining balance, as well as continuing to use positive self-talk. Altagracia is to continue working on the individual outpatient level with her Counselor, Lore Zhang, at [facility]. Discharge Recommendations/Instructions:: Client is recommended continued individual therapy at [facility] with her counselor Lore Zhang. Client to establish next appointment on this date. Client additionally encouraged to get involved in social activities such as yoga or an extra curricular sporting activity as well. Client in not currently prescribed any psychiatric medications and reports understanding the risks benefits alternatives of medications Discharge Handout: Complete Discharge Handout with client on aftercare options and continuity of care.
== END 2018-07-07 14:00 | disposition home or self-care (01) ==
LOC: BHIOP 09:00
PROVIDERS: Visit Provider Psychiatry & Neurology Psychiatry
DX: F33.2 Major depressive disorder, recurrent severe without psychotic features (principal); F41.9 Anxiety disorder, unspecified; F43.10 Post-traumatic stress disorder, unspecified; F12.20 Cannabis dependence, uncomplicated; F17.210 Nicotine dependence, cigarettes, uncomplicated
CPT/HCPCS: H0035; 90837; 90853